=== PATIENT | male | born 1995 | race Caucasian/White ===

== ENCOUNTER 2016-08-20 17:07 | Inpatient (IN) | payer OTHER ==
[~2016-08-20] VITALS: Ht 175.3 cm; Wt 99.0 kg
[2016-08-20 19:14] LABS: MEAN CORPUSCULAR HGB CONC 36.4 g/dl (32.0-36.5); MEAN CORPUSCULAR VOLUME 85.2 fl (80.0-96.0); RED CELL DISTRIBUTION WIDTH 12.6 % (11.5-14.5); WHITE BLOOD COUNT 7.9 K/mm3 (4.0-10.0)
[2016-08-20 19:29] LABS: AMPHETAMINES LEVEL URINE NEGATIVE (NEGATIVE); BENZODIAZEPINES URINE NEGATIVE (NEGATIVE); COCAINE METABOLITE URINE NEGATIVE (NEGATIVE); CONTROL LINE INT CTR LINE PRESENT; METHADONE URINE NEGATIVE (NEGATIVE); OPIATES URINE NEGATIVE (NEGATIVE); TRICYCLIC ANTIDEPRESS URINE NEGATIVE (NEGATIVE)
[2016-08-20 19:41] LABS: ALBUMIN 4.5 GM/DL (3.2-5.2); ALKALINE PHOSPHATASE 87 U/L (45-117); ALT/SGPT 43 U/L (12-78); ANION GAP 7 MEQ/L (8-16); AST/SGOT 18 U/L (15-37); BILIRUBIN,DIRECT < 0.1 MG/DL (0.0-0.2); BILIRUBIN,TOTAL 0.4 MG/DL (0.2-1.0); BLOOD UREA NITROGEN 16 MG/DL (7-18); CARBON DIOXIDE LEVEL 28 MEQ/L (21-32); CHLORIDE LEVEL 108 MEQ/L (98-107); CREATININE FOR GFR 0.94 MG/DL (0.70-1.30); GLUCOSE, FASTING 97 MG/DL (70-105); POTASSIUM SERUM 4.2 MEQ/L (3.5-5.1); SODIUM LEVEL 143 MEQ/L (136-145); TOTAL PROTEIN 7.5 GM/DL (6.4-8.2)
--- NOTE | 2016-08-21 08:13 | EDDOCDS ---
Physician Documentation [facility] Name: Romie De Leon Age: 20 yrs Sex: Male : 1995 Arrival Date: 08/20/2016 Time: 17:07 Bed OBSERVATION Private MD: Other - Complete Info On Cds Disposition: 08/21/16 07:51 Hospitalization ordered by Shweta Diaz for Inpatient Admission. Preliminary diagnosis is Adjustment disorder, unspecified. - Bed requested for Admit. - Status is Inpatient Admission. pjf - Condition is Stable. - Problem is new. - Symptoms are unchanged. Historical: - Allergies: No known drug Allergies; - Home Meds: 1. Advil 200 mg Oral tab 2 tabs every 6 hours as needed (Last dose: 08/20/2016 05:20) - PMHx: none; - PSHx: none; - Social history: Smoking status: Patient uses tobacco products, current some day smoker. No barriers to communication noted, The patient speaks fluent Spanish. - : The pt / caregiver states he / she is not on anticoagulants. Home medication list is obtained from the patient. - Exposure Risk Screening:: None identified. Vital Signs: 08/20 17:09 BP 156 / 83; Pulse 84; Resp 18 S; Temp 98.3(O); Pulse Ox 97% ; Weight 99.79 kg / 220 gr2 lbs (R); Height 5 ft. 9 in. (175.26 cm) (R); Pain 0/10; 22:20 BP 144 / 84; Pulse 60; Resp 18 S; Temp 97.8(O); Pulse Ox 100% on R/A; Pain 0/10; jp4 08/21 06:04 BP 154 / 72 LA Sitting; Pulse 82; Resp 16; Temp 97.6(T); Pulse Ox 97% on R/A; Pain 0/10;rw1 08:05 BP 143 / 69; Pulse 60; Resp 16; Temp 96.9(O); Pulse Ox 97% on R/A; Pain 0/10; kr3 08/20 17:09 Body Mass Index 32.49 (99.79 kg, 175.26 cm) gr2 MDM: 08/20 18:29 REGULAR DIET PLASTIC STONER+DIET ordered. EDMS 18:55 Consult PFS/PSA/Drill Runner Helper ordered. ml6 18:55 Consult PFS/PSA/Drill Runner Helper: Patient's case requires discussion with on-call ml6 Psychiatrist ordered. 18:55 PSA/PFS to call Nursing Pill Machine Operator, to enter patient data on [place] Safe Act if patient ml6 involuntarily admitted or transferred for SI or HI ordered. 18:55 Confirm accurate psychiatric medication list and times of last dosage ordered. ml6 18:55 Detain Pt Until Medically/PFS Cleared ordered. ml6 18:56 Acetaminophen Level Ordered. EDMS 18:56 Basic Metabolic Profile Ordered. EDMS 18:56 Complete Blood Count Ordered. EDMS 18:56 Drug Eval Toxicology ED Only Ordered. EDMS 18:56 Ethyl Alcohol (ethanol) Ordered. EDMS 18:57 Liver Profile Ordered. EDMS 18:57 Salicylate Level Ordered. EDMS 18:57 Thyroid Stimulating Hormone Ordered. EDMS 20:35 Acetaminophen Level Reviewed. ml 20:35 Basic Metabolic Profile Reviewed. ml 20:35 Salicylate Level Reviewed. ml 20:35 Complete Blood Count Reviewed. ml 20:35 Drug Eval Toxicology ED Only Reviewed. ml 20:35 Ethyl Alcohol (ethanol) Reviewed. ml 20:35 Liver Profile Reviewed. ml 20:35 Thyroid Stimulating Hormone Reviewed. ml 21:04 Financial registration complete. [id number] 22:02 [facility] Payment Agreement was scanned into [employer] and attached to record. [id number] 04 02:03 Consult PFS/PSA/Drill Runner Helper complete. rb 02:03 Consult PFS/PSA/Drill Runner Helper: Patient's case requires discussion with on-call rb Psychiatrist complete. 02:03 PSA/PFS to call Nursing Pill Machine Operator, to enter patient data [place] Safe [place] if patient rb involuntarily admitted or transferred for SI or HI complete. 04:20 REGULAR DIET PLASTIC STONER+DIET ordered. EDMS 05:45 Awaiting: The patient is awaiting psychiatric admission or transfer. All labs and pc investigations have been reviewed. The vital signs have been reviewed. The patient remains medically cleared for disposition. 07:20 Admit to [facility]: ordered. EDMS 07:21 [facility] Legal paperwork was scanned into [employer] and attached to record. rb Signatures: Dispatcher [employer] EDMS Sánchez Murcia MD MD pc Delaney-Rowland, Sarah, MD MD sd1 Chilango Elizabeth MD MD ml Sleeman, Kacey, RN RN kcs Vaishali De Leon, PSA PSA rb Mahin Langford, Security Aide Sergei Peoples RN RN ml6 Roseanne Ochoa, Reg Reg [email or web address] The chart was reviewed and I authenticate all verbal orders and agree with the evaluation and treatment provided.Attachments: 08/20 22:02 [facility] Payment Agreement [email or web address]
--- NOTE | 2016-08-21 08:14 | EDDOCDS ---
Nurse's Notes [facility] Name: Romie De Leon Age: 20 yrs Sex: Male : 1995 Arrival Date: 08/20/2016 Time: 17:07 Bed OBSERVATION Private MD: Other - Complete Info On Cds Diagnosis: Adjustment disorder, unspecified Presentation: 08/20 17:33 Presenting complaint: Patient states: he was refereed from [facility] for MHE. Patient denies kcs SI but admits to LA. Mental Health Triage Level: Level 2: The patient displays active homicidal ideations. Adult Sepsis Screening: The patient does not have new or worsening altered mentation. Patient's respiratory rate is less than 22. Systolic blood pressure is greater than 100. Patient has a qSOFA score of 0- Negative Sepsis Screen. Mental Health Triage Level: Level 2: The patient displays active homicidal ideations. Suicide/Homicide risk assessment- The patient admits to and/or has been reported to be having homicidal ideations. The patient reports that he/she has not been admitted to an inpatient mental health facility in the last 30 days. The patient reports that he/she does not have a recent or current history of substance abuse. The patient reports that he/she has no prior history of suicide attempt and/or organized plan. The patient reports that he/she has not experienced a significant life altering event in the last 30 days. The patient reports that he/she has adequate social support. The patient reports he/she has no significant chronic medical condition(s). 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 Transition of care: patient was not received from another setting of care. 17:33 Acuity: ALEX Level 3 kcs 17:33 Method Of Arrival: Walkin/Carried/Asstd kcs Triage Assessment: 17:36 General: Appears comfortable, well developed, well nourished, well groomed, Behavior is kcs cooperative, pleasant. Pain: Denies pain. HIV screening NA for this visit active duty . Neurological: Level of Consciousness is awake, alert. Respiratory: Airway is patent Respiratory effort is even, unlabored, Respiratory pattern is regular, symmetrical. Derm: Skin is intact, is healthy with good turgor, Skin is dry, Skin is normal. Historical: - Allergies: No known drug Allergies; - Home Meds: 1. Advil 200 mg Oral tab 2 tabs every 6 hours as needed (Last dose: 08/20/2016 05:20) - PMHx: none; - PSHx: none; - Social history: Smoking status: Patient uses tobacco products, current some day smoker. No barriers to communication noted, The patient speaks fluent Luxembourgish. - : The pt / caregiver states he / she is not on anticoagulants. Home medication list is obtained from the patient. - Exposure Risk Screening:: None identified. Screenin:01 Screening information is obtained from the patient. Fall risk: No risks identified. ml6 Assistance ADL's: requires no assistance with activities of daily living. Abuse/DV Screen: The patient / caregiver reports he/she is: not in a situation that causes fear, pain or injury. Nutritional screening: No deficits noted. Advance Directives: Currently, there is no health care proxy. home support is adequate. Assessment: 17:39 General: Patient moved to 2nd triage area with his escort. kcs 18:58 General: Appears in no apparent distress, Behavior is flat. General: patient states ml6 that he was speaking with [employer]. Patient states that he had a "break down" in front of [facility], stated that he told them that he was having thoughts of harming the people that were making fun of him. Pain: Denies pain. Neurological: No deficits noted. Cardiovascular: No deficits noted. Capillary refill < 3 seconds is brisk in bilateral fingers toes. Respiratory: No deficits noted. Airway is patent Respiratory effort is even, unlabored, Respiratory pattern is regular, symmetrical. 19:18 General: Appears in no apparent distress, Behavior is flat, Assumed care of pt at this af2 time. Pt being changed by Gabriel, FUSING LINE INSPECTOR at this time. Offers no complaints, escort at bedside with pt. . Neurological: Level of Consciousness is awake, alert, obeys commands, Oriented to person, place, time. Respiratory: Airway is patent Respiratory effort is even, unlabored. Derm: Skin is normal. 19:21 General: ROSELINE staff observing pt at this time.. af2 20:06 General: Appears in no apparent distress, comfortable, Behavior is appropriate for age, jmb cooperative, Patient laying on stretcher with commanding officer at bedside. Patient watching television and voices no complaints at this time.. Neurological: Level of Consciousness is awake, alert, obeys commands, Oriented to person, place, time. Respiratory: Airway is patent Respiratory effort is even, unlabored, Respiratory pattern is regular, symmetrical. 20:48 General: Appears in no apparent distress, Behavior is appropriate for age, cooperative, jmb Patient laying on stretcher, appears comfortable. Patient watching television. NO voiced complaints at this time. . Neurological: Level of Consciousness is awake, alert, obeys commands, Oriented to person, place, time. Respiratory: Airway is patent Respiratory effort is even, unlabored, Respiratory pattern is regular, symmetrical. 21:43 General: Appears in no apparent distress, comfortable, Behavior is appropriate for age, jmb cooperative, Patient ambulating in room with commanding officer at bedside. Patient made phone call. NO complaints voiced at this time.. Pain: Denies pain. Neurological: Level of Consciousness is awake, alert, obeys commands, Oriented to person, place, time, Loan Review Officer are equal bilaterally Moves all extremities. Speech is normal, Facial symmetry appears normal, Facial symmetry: tongue is midline. Cardiovascular: Capillary refill < 3 seconds Heart tones S1 S2 present Pulses are all present. Rhythm is regular Chest pain is denied. Respiratory: Airway is patent Respiratory effort is even, unlabored, Respiratory pattern is regular, symmetrical, Breath sounds are clear bilaterally. GI: Abdomen is non- distended Bowel sounds present X 4 quads. Abd is soft and non tender X 4 quads. Derm: Skin is pink, warm & dry. Musculoskeletal: Range of motion intact in all extremities. 22:17 General: Appears in no apparent distress, comfortable, Behavior is appropriate for age, jmb cooperative, Patient laying on stretcher with commanding officer at bedside. NO voiced complaints at this time. . Neurological: Level of Consciousness is awake, alert, obeys commands, Oriented to person, place, time. Respiratory: Airway is patent Respiratory effort is even, unlabored, Respiratory pattern is regular, symmetrical. 22:48 General: Appears in no apparent distress, comfortable, Behavior is appropriate for age, jmb cooperative, Patient laying on stretcher watching television. Patient denies discomfort at this time. . Neurological: Level of Consciousness is awake, alert, obeys commands, Oriented to person, place, time. Respiratory: Airway is patent Respiratory effort is even, unlabored, Respiratory pattern is regular, symmetrical. 23:30 General: Appears in no apparent distress, comfortable, Behavior is appropriate for age, jmb cooperative. Neurological: Level of Consciousness is awake, alert, obeys commands, Oriented to person, place, time. Respiratory: Airway is patent Respiratory effort is even, unlabored, Respiratory pattern is regular, symmetrical. 08/21 00:30 General: Appears in no apparent distress, comfortable, Behavior is appropriate for age, jmb cooperative, Patient appears comfortable. Voices no complaints at this time. . Neurological: Level of Consciousness is awake, alert, obeys commands, Oriented to person, place, time. Respiratory: Airway is patent Respiratory effort is even, unlabored, Respiratory pattern is regular, symmetrical. 01:40 General: Appears in no apparent distress, comfortable, Behavior is appropriate for age, jmb cooperative, Patient appears asleep, easy to arouse. NO voiced complaints at this time. . Neurological: Level of Consciousness is awake, alert, obeys commands, Oriented to person, place, time. Respiratory: Airway is patent Respiratory effort is even, unlabored, Respiratory pattern is regular, symmetrical. 02:46 Adult Sepsis Screening: The patient does not have new or worsening altered mentation. cf2 Patient's respiratory rate is less than 22. Systolic blood pressure is greater than 100. Patient has a qSOFA score of 0- Negative Sepsis Screen. General: Patient calm and cooperative. Offers no complaints at present time. Will continue to monitor . 03:08 Reassessment: Patient appears in no apparent distress at this time. resting quietly on rw1 stretcher, safety maintained will monitor.. 04:15 Reassessment: Patient calm and cooperative will continue to monitor . cf2 05:04 General: Appears in no apparent distress, comfortable, Behavior is quiet, resting on rw1 stretcher with eyes closed, safety maintained. Respiratory: Airway is patent Respiratory effort is even, unlabored. Derm: Skin is pink, warm & dry. normal. 06:04 Reassessment: Patient appears in no apparent distress at this time. Patient denies pain rw1 at this time. resting quietly on stretcher, safety maintained will monitor.. 06:29 Reassessment: Patient appears in no apparent distress at this time. Patient denies pain cf2 at this time. General: Patient calm and cooperative. Will continue to monitor . 08:10 General: Appears in no apparent distress, comfortable, Behavior is cooperative, mk4 transferred to [facility]. Mental Health Eval: 02:05 Mental health consult is initiated at 01:00. 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 [facility] Behavioral Health: The patient is not an established patient of [facility] Behavioral Health. Referral Information: Evaluation referral is generated by ELIZABETH on [place] [place]. The patient was referred for evaluation because Pt presented to ED via [facility] after making +SI and +HI statements. Pt stated "Super stressed out, had a mental breakdown". "everything just piled up". Pt reported depressed since return from deployment ([employer]eless-6mo) last October," thought depression would go away". "Depression got worse over , I am a stress eater, turned to food, gained weight". "I was put in over weight program, and get called names". "Super stressed". "Have been inside". "Would be easier if I wasn't here anymore". Pt reported made a +HI comment to someone regarding people who call him names. . Subjective: The patients chief complaint is +SI, hopeless, Made +HI comment.. Delusions are denied. Patient's mood is dysphoric, hopeless, Hallucinations are denied. Mental Health history: depression, Mental Health Admissions: None. Current Outpatient Mental Health Services: None. Current living environment is The patient currently lives with his / her significant other, in an apartment.. Patient presents to Emergency Department with the following symptoms within the past 2 weeks: anxiety, increased appetite, depressed mood, feelings of helplessness/hopelessness, labile mood, suicidal ideation with no plan, weight gain. Substance abuse: Pt denies. Mental status exam: Patients appearance is appropriate, Patient's behavior is cooperative, Speech is slow. Affect is flat. Mood is anxious. dysphoric. Hallucinations are denied. Memory is good. Energy level is lethargic. Content of thought is depressive. , Thought process is characterized by flight of ideas. Cognitive level is oriented to person, place, time and situation Patient's insight is fair. Judgement is fair. Rapport with interviewer is good. Suicidal Ideation is present with no specific plan. Homicidal ideation is denied. Disposition: Medically cleared for disposition by Chilango Elizabeth MD Psychiatric Consult is performed by phone with Dr Shweta Diaz. [facility] Admission Criteria: The patient is experiencing suicidal ideation. The patient displays homicidal ideation. The patient displays symptoms of severe psychiatric disorder resulting in disordered behavior and significant interference with his / her ability to maintain self care. Severe Anxiety. The patient requires continuous observation and/or control to protect self, others or property. [place] Safe [place]: [place] Safe Act is applicable to this patient. The patient poses a risk to self or other and the Nursing Enologist has been notified. He/She will enter the patient's data. 07:02 Legal Status: Patient's legal status will be Emergency admission: 39. Insurance rb Pre-Certification: Not Required. 07:31 DSM-V Differential Diagnosis: Adjustment Disorder (F43.2) with depressed mood (F43.21). rb Awaiting: transfer to [facility]. Vital Signs: 08/20 17:09 BP 156 / 83; Pulse 84; Resp 18 S; Temp 98.3(O); Pulse Ox 97% ; Weight 99.79 kg (R); gr2 Height 5 ft. 9 in. (175.26 cm) (R); Pain 0/10; 22:20 BP 144 / 84; Pulse 60; Resp 18 S; Temp 97.8(O); Pulse Ox 100% on R/A; Pain 0/10; jp4 / 06:04 BP 154 / 72 LA Sitting; Pulse 82; Resp 16; Temp 97.6(T); Pulse Ox 97% on R/A; Pain 0/10;rw1 08:05 BP 143 / 69; Pulse 60; Resp 16; Temp 96.9(O); Pulse Ox 97% on R/A; Pain 0/10; kr3 08/20 17:09 Body Mass Index 32.49 (99.79 kg, 175.26 cm) gr2 Vitals: 08/20 17:09 Log In Time: August 20, 2016 at 17:09. RN notified that patient meets Red Flag gr2 criteria. ED Course: 17:08 Patient visited by Adele Resendiz. gr2 17:08 Patient moved to Waiting gr2 17:09 Other - Complete Info On Cds is Private Physician. gr2 17:10 Patient visited by Adele Resendiz. gr2 17:10 Patient moved to Pre RCE gr2 17:35 Triage Initiated kcs 17:37 Patient moved to Psy Chair1 kcs 18:46 Patient moved to I8 / [facility] 18:50 Patient visited by Leanne Nguyen PCA. sudha 19:00 Chilango Elizabeth MD is Attending Physician. ml 19:00 Patient visited by Chilango Elizabeth MD. ml 19:01 The patient / caregiver is instructed regarding the plan of care and ED course. ml6 19:01 No IV's were initiated during this patient's visit. No procedures done that require ml6 assistance. 19:08 Acetaminophen Level Sent. sudha 19:08 Basic Metabolic Profile Sent. sudha 19:08 Complete Blood Count Sent. sudha 19:08 Drug Eval Toxicology ED Only Sent. sudha 19:08 Ethyl Alcohol (ethanol) Sent. sudha 19:08 Liver Profile Sent. sudha 19:08 Salicylate Level Sent. sudha 19:08 Thyroid Stimulating Hormone Sent. sudha 19:20 Patient visited by Lexis Weldon RN. af2 19:21 Patient visited by Lexis Weldon RN. af2 20:07 Patient visited by Junior Henderson RN. jmb 20:48 Patient visited by Martha Marshall PCA. rs6 20:49 Patient visited by Junior Henderson RN. jmb 21:44 Patient visited by Junior Henderson RN. jmb 22:02 [facility] Payment Agreement was scanned into [employer] and attached to record. ks16 22:18 Patient visited by Junior Henderson RN. jmb 22:20 Patient visited by Gabriel Moyer. jp4 22:49 Patient visited by Junior Henderson RN. jmb 23:07 Nayeli Jeffers,CLARIBEL is Primary Nurse. cf2 23:07 Patient visited by Nayeli Jeffers,CLARIBEL. cf2 23:17 Patient moved to OBSERVATION 08/21 00:49 role handed off by Robbin Giles PSA kb5 01:23 Patient visited by Nayeli Jeffers,CLARIBEL. cf2 01:42 Patient visited by Junior Henderson RN. jmb 02:46 Patient visited by Nayeli Jeffers,CLARIBEL. cf2 03:00 Patient visited by Travis Monique PCA. kb5 03:00 Psych Safety Check: Location: Psych Room. Visual Assessment: Cooperative. kb5 03:15 Patient visited by Travis Monique FUSING LINE INSPECTOR. kb5 03:15 Psych Safety Check: Location: Psych Room. Visual Assessment: Cooperative. kb5 03:30 Psych Safety Check: Location: Psych Room. Visual Assessment: Cooperative. kb5 03:31 Patient visited by Emeterio Alarcon LPN. rw1 03:45 Patient visited by Emeterio Alarcon LPN. rw1 03:45 Psych Safety Check: Location: Psych Room. Visual Assessment: Cooperative. kb5 04:00 Psych Safety Check: Location: Psych Room. Visual Assessment: Cooperative. kb5 04:04 Patient visited by Emeterio Alarcon LPN. rw1 04:15 Psych Safety Check: Location: Psych Room. Visual Assessment: Cooperative. kb5 04:18 Patient visited by Travis Monique FUSING LINE INSPECTOR. kb5 04:30 Patient visited by Terra Moniqueopher FUSING LINE INSPECTOR. kb5 04:30 Psych Safety Check: Location: Psych Room. Visual Assessment: Cooperative. kb5 04:45 Patient visited by Terra Moniqueopher FUSING LINE INSPECTOR. kb5 04:45 Psych Safety Check: Location: Psych Room. Visual Assessment: Cooperative. kb5 05:00 Psych Safety Check: Location: Psych Room. Visual Assessment: Cooperative. kb5 05:15 Psych Safety Check: Location: Psych Room. Visual Assessment: Cooperative. kb5 05:22 Patient visited by Terra Moniqueopher FUSING LINE INSPECTOR. kb5 05:30 Psych Safety Check: Location: Psych Room. Visual Assessment: Cooperative. kb5 05:40 Patient visited by Terra Moniqueopher, FUSING LINE INSPECTOR. kb5 05:45 Patient visited by Terra Moniqueopher FUSING LINE INSPECTOR. kb5 05:45 Attending Physician role handed off by Chilango Elizabeth MD pc 05:45 Sánchez Murcia MD is Attending Physician. pc 05:45 Psych Safety Check: Location: Psych Room. Visual Assessment: Cooperative. kb5 06:00 Patient visited by Abner Moniqueer FUSING LINE INSPECTOR. kb5 06:00 Psych Safety Check: Location: Psych Room. Visual Assessment: Cooperative. kb5 06:15 Patient visited by Abner Moniqueer FUSING LINE INSPECTOR. kb5 06:15 Psych Safety Check: Location: Psych Room. Visual Assessment: Cooperative. kb5 06:29 Patient visited by Nayeli Jeffers RN. cf2 06:30 Patient visited by Travis Monique PCA. kb5 06:30 Psych Safety Check: Location: Psych Room. Visual Assessment: Cooperative. kb5 06:45 Psych Safety Check: Location: Psych Room. Visual Assessment: Cooperative. kb5 06:57 Patient visited by Traivs Monique PCA. kb5 07:00 Svetlana Martin,CLARIBEL is Primary Nurse. ck1 07:00 Psych Safety Check: Location: Psych Room. Visual Assessment: Cooperative. pjf 07:05 Attending Physician role handed off by Sánchez Murcia MD sd1 07:05 Nika Jerez MD is Attending Physician. sd1 07:15 Psych Safety Check: Location: Psych Room. Visual Assessment: Cooperative. pjf 07:21 [facility] Legal paperwork was scanned into [employer] and attached to record. rb 07:30 Psych Safety Check: Location: Psych Room. Visual Assessment: Cooperative. pjf 07:45 Psych Safety Check: Location: Psych Room. Visual Assessment: Cooperative. pjf 07:51 Shweta Diaz is Hospitalizing Provider. sd1 07:53 Patient visited by Mahin Langford Security Aide. pjf 08:09 Patient visited by Mahin Langford Security Aide. pjf Attachments: 08/21 07:21 [facility] Legal paperwork rb Order Results: Lab Order: Acetaminophen Level; SPEC'M 08/20/16 19:06 Test: ACETAMINOPHEN LEVEL; Value: < 2.0; Range: 10.0-30.0; Abnormal: Below low normal; Units: UG/ML; Status: F Lab Order: Basic Metabolic Profile; SPEC'M 08/20/16 19:06 Test: GLUCOSE, FASTING; Value: 97; Range: 70-105; Units: MG/DL; Status: F Test: BLOOD UREA NITROGEN; Value: 16; Range: 7-18; Units: MG/DL; Status: F Test: CREATININE FOR GFR; Value: 0.94; Range: 0.70-1.30; Units: MG/DL; Status: F Test: SODIUM LEVEL; Value: 143; Range: 136-145; Units: MEQ/L; Status: F Test: POTASSIUM SERUM; Value: 4.2; Range: 3.5-5.1; Units: MEQ/L; Status: F Test: CHLORIDE LEVEL; Value: 108; Range: 98-107; Abnormal: Above high normal; Units: MEQ/L; Status: F Test: CARBON DIOXIDE LEVEL; Value: 28; Range: 21-32; Units: MEQ/L; Status: F Test: ANION GAP; Value: 7; Range: 8-16; Abnormal: Below low normal; Units: MEQ/L; Status: F Test: CALCIUM LEVEL; Value: 9.0; Range: 8.5-10.1; Units: MG/DL; Status: F Lab Order: Complete Blood Count; SPEC'M 08/20/16 19:06 Test: WHITE BLOOD COUNT; Value: 7.9; Range: 4.0-10.0; Units: K/mm3; Status: F Test: RED BLOOD COUNT; Value: 5.29; Range: 4.30-6.10; Units: M/mm3; Status: F Test: HEMOGLOBIN; Value: 16.4; Range: 14.0-18.0; Units: g/dl; Status: F Test: HEMATOCRIT; Value: 45.1; Range: 42.0-52.0; Units: %; Status: F Test: MEAN CORPUSCULAR VOLUME; Value: 85.2; Range: 80.0-96.0; Units: fl; Status: F Test: MEAN CORPUSCULAR HEMOGLOBIN; Value: 31.0; Range: 27.0-33.0; Units: pg; Status: F Test: MEAN CORPUSCULAR HGB CONC; Value: 36.4; Range: 32.0-36.5; Units: g/dl; Status: F Test: RED CELL DISTRIBUTION WIDTH; Value: 12.6; Range: 11.5-14.5; Units: %; Status: F Test: PLATELET COUNT, AUTOMATED; Value: 208; Range: 150-450; Units: k/mm3; Status: F Lab Order: Drug Eval Toxicology ED Only; SPEC'M 08/20/16 19:06 Test: AMPHETAMINES LEVEL URINE; Value: NEGATIVE; Range: NEGATIVE; Status: F Test: BARBITURATES URINE; Value: NEGATIVE; Range: NEGATIVE; Status: F Test: BENZODIAZEPINES URINE; Value: NEGATIVE; Range: NEGATIVE; Status: F Test: CANNABINOIDS URINE; Value: NEGATIVE; Range: NEGATIVE; Status: F Test: COCAINE METABOLITE URINE; Value: NEGATIVE; Range: NEGATIVE; Status: F Test: METHADONE URINE; Value: NEGATIVE; Range: NEGATIVE; Status: F Test: OPIATES URINE; Value: NEGATIVE; Range: NEGATIVE; Status: F Test: TRICYCLIC ANTIDEPRESS URINE; Value: NEGATIVE; Range: NEGATIVE; Status: F Test Note: ; ALL PRESUMPTIVE POSITIVE FINDINGS ARE UNCONFIRMED NORMAL VALUES THRESHOLD IN NG/ML AMPHETAMINES 1000 METHAMPHETAMINES 1000 BARBITURATES 300 BENZODIAZEPINES 300 CANNABINOIDS (THC) 50 COCAINE METABOLITE 300 METHADONE 300 OPIATES 300 PHENCYCLIDINE 25 TRICYCLIC ANTIDEPRESSANTS 1000 RESULTS ARE FOR MEDICAL PURPOSES ONLY. ALL URINE SPECIMENS WILL BE SAVED FOR 3 DAYS. IF CONFIRMATION OF A PRESUMPTIVE POSTIVE SCREEN RESULT IS DESIRED, CALL CHEMISTRY ([phone]) AND REQUEST URINE TO BE SENT TO REFERENCE LAB. FOR A LIST OF CLOSELY RELATED COMPOUNDS PLEASE CALL THE LAB. Lab Order: Ethyl Alcohol (ethanol); SPEC'M 08/20/16 19:06 Test: ETHYL ALCOHOL (ETHANOL); Value: < 0.003; Range: 0.000-0.010; Units: %; Status: F Lab Order: Liver Profile; SPEC'M 08/20/16 19:06 Test: AST/SGOT; Value: 18; Range: 15-37; Units: U/L; Status: F Test: ALT/SGPT; Value: 43; Range: 12-78; Units: U/L; Status: F Test: ALKALINE PHOSPHATASE; Value: 87; Range: 45-117; Units: U/L; Status: F Test: BILIRUBIN,TOTAL; Value: 0.4; Range: 0.2-1.0; Units: MG/DL; Status: F Test: BILIRUBIN,DIRECT; Value: < 0.1; Range: 0.0-0.2; Units: MG/DL; Status: F Test: TOTAL PROTEIN; Value: 7.5; Range: 6.4-8.2; Units: GM/DL; Status: F Test: ALBUMIN; Value: 4.5; Range: 3.2-5.2; Units: GM/DL; Status: F Test: ALBUMIN/GLOBULIN RATIO; Value: 1.50; Range: 1.00-1.93; Status: F Lab Order: Salicylate Level; SPEC'M 08/20/16 19:06 Test: SALICYLATE LEVEL; Value: < 1.7; Range: 5.0-30.0; Abnormal: Below low normal; Units: MG/DL; Status: F Lab Order: Thyroid Stimulating Hormone; SPEC'M 08/20/16 19:06 Test: THYROID STIMULATING HORMONE; Value: 1.310; Range: 0.463-3.98; Units: uIU/ML; Status: F Outcome: 07:51 Decision to Hospitalize by Provider. sd1 08:09 Discharge Assessment: Patient awake, alert and oriented x 3. No cognitive and/or mk4 functional deficits noted. Patient verbalized understanding of disposition instructions. Patient awake and alert. Discharge Assessment: patient administered narcotics - no. Admitted to Psych accompanied by tech, via wheelchair. The following High Risk Discharge criteria are identified: None. Condition: good Condition: stable. No special radiology studies were completed. Property left with pt per emilee SANFORD. 08:13 Patient left the ED. pjf Signatures: Sánchez Murcia MD MD pc Delaney-Rowland, Sarah, MD MD sd1 Chilango Elizabeth MD MD ml Hanna Judd, RN RN kcs Kayleigh Sterling RN RN kpj De Leon, Vaishali, PSA PSA rb Ferendzo, Mahin, Security A[facility] Svetlana MartinRN RN ck1 Monique Neff,RN RN kr3 Emeterio Alarcon LPN LPN rw1 Travis Monique, FUSING LINE INSPECTOR FUSING LINE INSPECTOR kb5 Sergei Hurley, RN RN ml6 Leanne Nguyen, FUSING LINE INSPECTOR FUSING LINE INSPECTOR sudha Adele Resendiz gr2 Junior Henderson,RN RN Lanie Owen RN RN mk4 Gabriel Moyer jp4 Martha Marshall, FUSING LINE INSPECTOR FUSING LINE INSPECTOR rs6 Lexis Weldon,RN RN af2 Roseanne Ochoa, Reg Reg ks16 Nayeli Jeffers,RN RN cf2 MTDD
[2016-08-21 08:32] VITALS: BP 148/86
[2016-08-21] MEDS ORDERED: MAALOX 30 ML SUSP *UDC PO PRN (11:45)
[2016-08-21] MEDS ORDERED: IBUPROFEN 400 MG TAB PO PRN (11:45)
[2016-08-21] MEDS ORDERED: MOM 30ML SUSPENSION UDC PO PRN (11:45)
--- NOTE | 2016-08-21 13:24 | HPEPDOC ---
Medical History and Physical Date of Admission Aug 21, 2016 at 08:20 History and Physical PCP: [facility] ATTENDING: Dr. Ed Martinez HPI: 20yoM admitted to [facility] for Adjustment disorder, being medically examined today. Reports mild sinus congestion, clear drainage. No ST, sinus pain, cough. Denies any fevers, chills, weakness, fatigue, LUBIN, CP, SOB, cough, palpitations, abdominal pain, N/V/D or changes in bowel or bladder habits. 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 ETOH: 1-2 drink per month Illicit Drugs: Denies IV Drug Use: Denies Tattoos done unprofessionally: Denies FAMHX: Mother: Alive, estranged Father: Alive, well Siblings: 1 brother, 1 half sister Alive, well Children: Alive, well Unexpected deaths due to medical reasons: None. ROS: As noted in HPI, otherwise 11pt ROS of systems reviewed and unremarkable PE: GEN: 20yoM, appears stated age. Well-nourished, well developed. No acute distress. Alert and oriented x 3. Pleasant, interactive. HEENT: Normocephalic, atraumatic. Pupils are equal, round, and reactive to light. Extraocular movements are intact. No nystagmus appreciated. Sclera are nonicteric. Conjunctiva without injection. Nose midline. Nasal turbinates without bogginess. EACs both patent BL. TMs both visualized and otero with good cone of light, no bulging or erythema. No facial asymmetry. Moist mucous membranes. Dentition fair. Pharynx pink and moist, no cobblestoning. Neck supple , trachea midline. No lymphadenopathy or thyromegaly appreciated. CHEST: Regular rate and rhythm, +S1, +S2 LUNGS: Clear to auscultation bilaterally. No wheezes, rales, or rhonchi. Breathing appears symmetric and easy. Patient is speaking in full sentences. No accessory muscle use. ABD: Round, soft, non-tender, non-distended. +Bowel sounds throughout. No rebound or guarding. No costovertebral angle tenderness. EXT: Pulses 2+ bilaterally dorsalis pedis and radial. No lower extremity edema appreciated. SKIN: [place], dry, warm. Capillary refill <2sec. No rashes. NEURO: Alert and oriented x 3. Cranial nerves III-XII are intact. No focal deficits appreciated. EKG: pending. A&P: 20yoM admitted to [facility] for Adjustment disorder 1. Psych. Plan per Psychiatry. Obtain baseline EKG to assure the safety of psychiatric medications as they can prolong the QT interval. 2. Nasal congestion/PND. Saline nasal spray as needed. 3. Follow up with PCP on discharge. [facility]. 4. Staff member present throughout exam, Reji carlson. Vital Signs Vital Signs Label Value Date Time Patient Temperature 97.6 degrees F 08/21/16 0832 Temperature Source Tympanic 08/21/16 0832 Pulse 72 08/21/16 0832 Respiratory Rate 16 bpm 08/21/16 0832 Blood Pressure Assessment 148/86 (106) 08/21/16 0832 Bedside Pulse Oximetry 97 % 08/21/16 0832 Item Value Date Time Oxygen Delivery Method Room Air 08/21/16 0832 Laboratory Data Labs 24H Laboratory Tests 2 08/20/16 19:06: Acetaminophen Level < 2.0L, Aspartate Amino Transf (AST/SGOT) 18, Alanine Aminotransferase (ALT/SGPT) 43, Alkaline Phosphatase 87, Total Bilirubin 0.4, Direct Bilirubin < 0.1, Albumin 4.5, Albumin/Globulin Ratio 1.50, Anion Gap 7L, Calcium Level 9.0, Ethyl Alcohol Level < 0.003, Salicylates Level < 1.7L, Thyroid Stimulating Hormone (TSH) 1.310, Total Protein 7.5, Urine Amphetamine Level NEGATIVE, Urine Benzodiazepines Screen NEGATIVE, Urine Cannabinoids NEGATIVE, Urine Cocaine Metabolite NEGATIVE, Urine Opiates Screen NEGATIVE, Urine Barbiturates, Qualitative NEGATIVE, Urine Methadone Screen NEGATIVE, Urine Tricyclic Antidepressants NEGATIVE CBC/BMP Laboratory Tests 08/20/16 19:06 Red Blood Count 5.29, Mean Corpuscular Volume 85.2, Mean Corpuscular Hemoglobin 31.0, Mean Corpuscular Hemoglobin Concent 36.4, Red Cell Distribution Width 12.6 Home Medications Miscellaneous Medications ([None]) NONE Allergies Coded Allergies: No Known Allergies (Unverified , 08/21/16) Maame Mace Aug 21, 2016 13:24
[2016-08-21] MEDS ORDERED: SODIUM CHLORIDE NASAL 0.65% SPRAY BTL (OCEAN) PRN (13:30)
[2016-08-21] MEDS: VENLAFAXINE **XR** 37.5 MG CAPSULE PO SCH (14:51)
--- NOTE | 2016-08-21 15:00 | MHHPE ---
DATE OF ADMISSION: 08/21/2016 CURRENT MEDICATIONS: None. CHIEF COMPLAINT: Homicidal/suicidal ideation. 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 Since he came home from deployment from [place] back in October 2015, he has become more depressed over the course of time. He has complained of nightmares. He feels useless. He feels empty inside. He no longer enjoys life. Activities that used to give him pleasure, he now avoids. He no longer socializes with friends. He no longer skis, snow boards, or ice skates. His appetite has increased. 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 His concentration has suffered. He sleeps poorly at night. He tosses and turns a lot. The patient states that he has been punished for going on sick-call for his weight. The patient was afraid to go to behavioral health because of negative consequences in the platoon. He reports that his buddies make fun of him and his weight which makes him more depressed. The patient states he was afraid he might crack and hurt himself or his peers. The patient does have a history of anxiety and panic attacks. He is avoidant. He avoids busy places like shopping malls. He has had classic panic attacks where he hyperventilates. The patient is from [place] town and finds even [place] overwhelming. Caffeine consumption is rare. He denies obsessive-compulsive disorder (OCD) symptoms. He does feel claustrophobic in small spaces. Public speaking is hard for him. He gets flustered easily. He did have a speech impediment in the past and saw a speech therapist. PAST PSYCHIATRIC HISTORY: The patient has never seen a psychiatrist. When his parents got when he was 7, he did see a counselor briefly after the divorce. PAST MEDICAL HISTORY: The patient denies. ALLERGIES TO MEDICATIONS: None noted. LEGAL ISSUES: Negative. CHEMICAL DEPENDENCY: None. SOCIAL HISTORY: The patient was born and raised in a small town in [place]. He is a high school graduate. Parents when he was 7 or 8. He has not seen his mother in eight years. Relationship with father is good. Relationship with his two siblings is good. FAMILY PSYCHIATRIC HISTORY: The patient denies. MENTAL STATUS EXAMINATION: The patient is alert, oriented, and cooperative. He reports anxiety symptoms with phobic behavior with a history of panic symptoms. Affect appears sad. Mood is mildly to moderately depressed with recent homicidal/suicidal thoughts. He is non-psychotic, not hearing voices. No paranoid or thought disorder. Insight and judgment are fair. No signs of organic episodes. DIAGNOSES: 1. Major depression, single episode. 2. Panic anxiety disorder. 3. Rule out posttraumatic stress disorder (PTSD) from deployment. 4. Rule out social phobia. PROBLEM LIST: 1. Depression. 2. Risk for suicide. 3. Anxiety. PLAN: Start trial on Effexor XR 37.5 mg every morning. The patient learned about the risk of side effects and possible suicidal thoughts, etcetera, involve in milieu therapy, 9.39 confirmed.
[2016-08-21 18:00] VITALS: BP 133/69
[2016-08-21] MEDS: traZODone 50 MG TAB PO PRN (21:27)
[2016-08-22 06:31] VITALS: BP 133/72
[2016-08-22] MEDS: VENLAFAXINE **XR** 37.5 MG CAPSULE PO SCH (08:47)
--- NOTE | 2016-08-22 16:37 | IPN ---
DATE: 08/22/2016 VITAL SIGNS: Temperature 96.2, pulse 70, respirations 16, blood pressure 133/72. CURRENT MEDICATIONS: - Effexor XR 37.5 mg - trazodone 50 mg nightly PSYCHIATRIC HISTORY: The patient feels comfortable on the unit. He finds the groups helpful here. It is helping with his stress level. He is still worried about the future, however. His appetite is good. He is sleeping better at night with the trazodone. He slept like a "rock." This is quite rare for him. He typically has nightmares or tosses and turns all night. He feels comfortable increasing his dose of Effexor. He has had no side effects on it. No nausea or vomiting. MENTAL STATUS EXAMINATION: The patient is alert, oriented and cooperative. The patient still reports anxiety symptoms with a history of phobias. No panic attacks on the unit. Affect remains sad. He is mildly depressed. He is not currently homicidal or suicidal. No signs of paranoia. He is not hearing voices. Insight and judgment are fair. DIAGNOSES: Major depression, single episode. Panic and anxiety disorder. Rule out post-traumatic stress disorder (PTSD) from deployment. Rule out social phobia. PLAN: Increase Effexor XR 75 mg every morning. No change in trazodone.
--- NOTE | 2016-08-22 17:24 | ECGEPIP ---
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
[2016-08-22 18:00] VITALS: BP 152/64
[2016-08-22] MEDS: traZODone 50 MG TAB PO PRN (22:05)
[2016-08-23 06:00] VITALS: BP 155/59
[2016-08-23] MEDS: VENLAFAXINE **XR** 75MG CAPSULE PO SCH (09:10)
--- NOTE | 2016-08-23 09:14 | EDDOCDS ---
Physician Documentation [facility] Name: Romie De Leon Age: 20 yrs Sex: Male : 1995 Arrival Date: 08/20/2016 Time: 17:07 Bed OBSERVATION Private MD: Other - Complete Info On Cds Disposition: 08/21/16 07:51 Hospitalization ordered by Shweta Diaz for Inpatient Admission. Preliminary diagnosis is Adjustment disorder, unspecified. - Bed requested for Admit. - Status is Inpatient Admission. pjf - Condition is Stable. - Problem is new. - Symptoms are unchanged. Historical: - Allergies: No known drug Allergies; - Home Meds: 1. Advil 200 mg Oral tab 2 tabs every 6 hours as needed (Last dose: 08/20/2016 05:20) - PMHx: none; - PSHx: none; - Social history: Smoking status: Patient uses tobacco products, current some day smoker. No barriers to communication noted, The patient speaks fluent Italian. - : The pt / caregiver states he / she is not on anticoagulants. Home medication list is obtained from the patient. - Exposure Risk Screening:: None identified. Vital Signs: 08/20 17:09 BP 156 / 83; Pulse 84; Resp 18 S; Temp 98.3(O); Pulse Ox 97% ; Weight 99.79 kg / 220 gr2 lbs (R); Height 5 ft. 9 in. (175.26 cm) (R); Pain 0/10; 22:20 BP 144 / 84; Pulse 60; Resp 18 S; Temp 97.8(O); Pulse Ox 100% on R/A; Pain 0/10; jp4 08/21 06:04 BP 154 / 72 LA Sitting; Pulse 82; Resp 16; Temp 97.6(T); Pulse Ox 97% on R/A; Pain 0/10;rw1 08:05 BP 143 / 69; Pulse 60; Resp 16; Temp 96.9(O); Pulse Ox 97% on R/A; Pain 0/10; kr3 08/20 17:09 Body Mass Index 32.49 (99.79 kg, 175.26 cm) gr2 MDM: 08/20 18:29 REGULAR DIET PLASTIC STONER+DIET ordered. EDMS 18:55 Consult PFS/PSA/Wax Pot Tender ordered. ml6 18:55 Consult PFS/PSA/Wax Pot Tender: Patient's case requires discussion with on-call ml6 Psychiatrist ordered. 18:55 PSA/PFS to call Nursing Staff Editor, to enter patient data on [place] if patient ml6 involuntarily admitted or transferred for SI or HI ordered. 18:55 Confirm accurate psychiatric medication list and times of last dosage ordered. ml6 18:55 Detain Pt Until Medically/PFS Cleared ordered. ml6 18:56 Acetaminophen Level Ordered. EDMS 18:56 Basic Metabolic Profile Ordered. EDMS 18:56 Complete Blood Count Ordered. EDMS 18:56 Drug Eval Toxicology ED Only Ordered. EDMS 18:56 Ethyl Alcohol (ethanol) Ordered. EDMS 18:57 Liver Profile Ordered. EDMS 18:57 Salicylate Level Ordered. EDMS 18:57 Thyroid Stimulating Hormone Ordered. EDMS 20:35 Acetaminophen Level Reviewed. ml 20:35 Basic Metabolic Profile Reviewed. ml 20:35 Salicylate Level Reviewed. ml 20:35 Complete Blood Count Reviewed. ml 20:35 Drug Eval Toxicology ED Only Reviewed. ml 20:35 Ethyl Alcohol (ethanol) Reviewed. ml 20:35 Liver Profile Reviewed. ml 20:35 Thyroid Stimulating Hormone Reviewed. ml 21:04 Financial registration complete. [email or web address] 22:02 [facility] Payment Agreement was scanned into [employer] and attached to record. [email or web address] 04 02:03 Consult PFS/PSA/Wax Pot Tender complete. rb 02:03 Consult PFS/PSA/Wax Pot Tender: Patient's case requires discussion with on-call rb Psychiatrist complete. 02:03 PSA/PFS to call Nursing Staff Editor, to [place] if patient rb involuntarily admitted or transferred for SI or HI complete. 04:20 REGULAR DIET PLASTIC STONER+DIET ordered. EDMS 05:45 Awaiting: The patient is awaiting psychiatric admission or transfer. All labs and pc investigations have been reviewed. The vital signs have been reviewed. The patient remains medically cleared for disposition. 07:20 Admit to [facility]: ordered. EDMS 07:21 [facility] Legal paperwork was scanned into [employer] and attached to record. rb 15:07 T-Sheet-- Draft Copy was scanned into [employer] and attached to record. gb Signatures: Dispatcher [employer] EDMS Sánchez Murcia MD MD pc Delaney-Rowland, Sarah, MD MD sd1 Chilango Elizabeth MD MD ml Hanna Judd, RN RN kcs Vaishali De Leon, PSA PSA rb Destiny Waters, Reg Reg gb Mahin Langford, Sergei Byers RN RN ml6 Roseanne Ochoa, Reg Reg [email or web address] The chart was reviewed and I authenticate all verbal orders and agree with the evaluation and treatment provided.Attachments: 08/20 22:02 [facility] Payment Agreement [email or web address] 15:07 T-Sheet-- Draft Copy gb Chart Complete MTDD
--- NOTE | 2016-08-23 09:14 | EDDOCDS ---
Physician Documentation [facility] Name: Romie De Leon Age: 20 yrs Sex: Male : 1995 Arrival Date: 08/20/2016 Time: 17:07 Bed OBSERVATION Private MD: Other - Complete Info On Cds Disposition: 08/21/16 07:51 Hospitalization ordered by Shweta Diaz for Inpatient Admission. Preliminary diagnosis is Adjustment disorder, unspecified. - Bed requested for Admit. - Status is Inpatient Admission. pjf - Condition is Stable. - Problem is new. - Symptoms are unchanged. Historical: - Allergies: No known drug Allergies; - Home Meds: 1. Advil 200 mg Oral tab 2 tabs every 6 hours as needed (Last dose: 08/20/2016 05:20) - PMHx: none; - PSHx: none; - Social history: Smoking status: Patient uses tobacco products, current some day smoker. No barriers to communication noted, The patient speaks fluent Croatian. - : The pt / caregiver states he / she is not on anticoagulants. Home medication list is obtained from the patient. - Exposure Risk Screening:: None identified. Vital Signs: 08/20 17:09 BP 156 / 83; Pulse 84; Resp 18 S; Temp 98.3(O); Pulse Ox 97% ; Weight 99.79 kg / 220 gr2 lbs (R); Height 5 ft. 9 in. (175.26 cm) (R); Pain 0/10; 22:20 BP 144 / 84; Pulse 60; Resp 18 S; Temp 97.8(O); Pulse Ox 100% on R/A; Pain 0/10; jp4 08/21 06:04 BP 154 / 72 LA Sitting; Pulse 82; Resp 16; Temp 97.6(T); Pulse Ox 97% on R/A; Pain 0/10;rw1 08:05 BP 143 / 69; Pulse 60; Resp 16; Temp 96.9(O); Pulse Ox 97% on R/A; Pain 0/10; kr3 08/20 17:09 Body Mass Index 32.49 (99.79 kg, 175.26 cm) gr2 MDM: 08/20 18:29 REGULAR DIET PLASTIC STONER+DIET ordered. EDMS 18:55 Consult PFS/PSA/Division Superintendent ordered. ml6 18:55 Consult PFS/PSA/Division Superintendent: Patient's case requires discussion with on-call ml6 Psychiatrist ordered. 18:55 PSA/PFS to call Nursing Lumber Piler Operator, to [place] if patient ml6 involuntarily admitted or transferred for SI or HI ordered. 18:55 Confirm accurate psychiatric medication list and times of last dosage ordered. ml6 18:55 Detain Pt Until Medically/PFS Cleared ordered. ml6 18:56 Acetaminophen Level Ordered. EDMS 18:56 Basic Metabolic Profile Ordered. EDMS 18:56 Complete Blood Count Ordered. EDMS 18:56 Drug Eval Toxicology ED Only Ordered. EDMS 18:56 Ethyl Alcohol (ethanol) Ordered. EDMS 18:57 Liver Profile Ordered. EDMS 18:57 Salicylate Level Ordered. EDMS 18:57 Thyroid Stimulating Hormone Ordered. EDMS 20:35 Acetaminophen Level Reviewed. ml 20:35 Basic Metabolic Profile Reviewed. ml 20:35 Salicylate Level Reviewed. ml 20:35 Complete Blood Count Reviewed. ml 20:35 Drug Eval Toxicology ED Only Reviewed. ml 20:35 Ethyl Alcohol (ethanol) Reviewed. ml 20:35 Liver Profile Reviewed. ml 20:35 Thyroid Stimulating Hormone Reviewed. ml 21:04 Financial registration complete. [email or web address] 22:02 [facility] Payment Agreement was scanned into [employer] and attached to record. [email or web address] 04 02:03 Consult PFS/PSA/Division Superintendent complete. rb 02:03 Consult PFS/PSA/Division Superintendent: Patient's case requires discussion with on-call rb Psychiatrist complete. 02:03 PSA/PFS to call Nursing Lumber Piler Operator, to [place] if patient rb involuntarily admitted or transferred for SI or HI complete. 04:20 REGULAR DIET PLASTIC STONER+DIET ordered. EDMS 05:45 Awaiting: The patient is awaiting psychiatric admission or transfer. All labs and pc investigations have been reviewed. The vital signs have been reviewed. The patient remains medically cleared for disposition. 07:[address] [facility]: ordered. EDMS 07:21 [facility] Legal paperwork was scanned into [employer] and attached to record. rb 15:07 T-Sheet-- Draft Copy was scanned into [employer] and attached to record. gb Signatures: Dispatcher [employer] EDMS Sánchez Murcia MD MD pc Delaney-Rowland, Sarah, MD MD sd1 Chilango Elizabeth MD MD ml Hanna Judd, RN RN kcs Vaishali De Leon, PSA PSA rb Destiny Waters, Reg Reg gb Mahin Langford, Sergei Byers RN RN ml6 Roseanne Ochoa, Reg Reg [email or web address] The chart was reviewed and I authenticate all verbal orders and agree with the evaluation and treatment provided.Attachments: 08/20 22:02 [facility] Payment Agreement [email or web address] 15:07 T-Sheet-- Draft Copy gb Chart Complete MTDD
--- NOTE | 2016-08-23 09:14 | EDDOCDS ---
Nurse's Notes [facility] Name: Romie De Leon Age: 20 yrs Sex: Male : 1995 Arrival Date: 08/20/2016 Time: 17:07 Bed OBSERVATION Private MD: Other - Complete Info On Cds Diagnosis: Adjustment disorder, unspecified Presentation: 08/20 17:33 Presenting complaint: Patient states: he was refereed from [facility] for MHE. Patient denies kcs SI but admits to NC. Mental Health Triage Level: Level 2: The patient displays active homicidal ideations. Adult Sepsis Screening: The patient does not have new or worsening altered mentation. Patient's respiratory rate is less than 22. Systolic blood pressure is greater than 100. Patient has a qSOFA score of 0- Negative Sepsis Screen. Mental Health Triage Level: Level 2: The patient displays active homicidal ideations. Suicide/Homicide risk assessment- The patient admits to and/or has been reported to be having homicidal ideations. The patient reports that he/she has not been admitted to an inpatient mental health facility in the last 30 days. The patient reports that he/she does not have a recent or current history of substance abuse. The patient reports that he/she has no prior history of suicide attempt and/or organized plan. The patient reports that he/she has not experienced a significant life altering event in the last 30 days. The patient reports that he/she has adequate social support. The patient reports he/she has no significant chronic medical condition(s). 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 Transition of care: patient was not received from another setting of care. 17:33 Acuity: ALEX Level 3 kcs 17:33 Method Of Arrival: Walkin/Carried/Asstd kcs Triage Assessment: 17:36 General: Appears comfortable, well developed, well nourished, well groomed, Behavior is kcs cooperative, pleasant. Pain: Denies pain. HIV screening NA for this visit active duty . Neurological: Level of Consciousness is awake, alert. Respiratory: Airway is patent Respiratory effort is even, unlabored, Respiratory pattern is regular, symmetrical. Derm: Skin is intact, is healthy with good turgor, Skin is dry, Skin is normal. Historical: - Allergies: No known drug Allergies; - Home Meds: 1. Advil 200 mg Oral tab 2 tabs every 6 hours as needed (Last dose: 08/20/2016 05:20) - PMHx: none; - PSHx: none; - Social history: Smoking status: Patient uses tobacco products, current some day smoker. No barriers to communication noted, The patient speaks fluent Kiswahili. - : The pt / caregiver states he / she is not on anticoagulants. Home medication list is obtained from the patient. - Exposure Risk Screening:: None identified. Screenin:01 Screening information is obtained from the patient. Fall risk: No risks identified. ml6 Assistance ADL's: requires no assistance with activities of daily living. Abuse/DV Screen: The patient / caregiver reports he/she is: not in a situation that causes fear, pain or injury. Nutritional screening: No deficits noted. Advance Directives: Currently, there is no health care proxy. home support is adequate. Assessment: 17:39 General: Patient moved to 2nd triage area with his escort. kcs 18:58 General: Appears in no apparent distress, Behavior is flat. General: patient states ml6 that he was speaking with [employer]. Patient states that he had a "break down" [facility], stated that he told them that he was having thoughts of harming the people that were making fun of him. Pain: Denies pain. Neurological: No deficits noted. Cardiovascular: No deficits noted. Capillary refill < 3 seconds is brisk in bilateral fingers toes. Respiratory: No deficits noted. Airway is patent Respiratory effort is even, unlabored, Respiratory pattern is regular, symmetrical. 19:18 General: Appears in no apparent distress, Behavior is flat, Assumed care of pt at this af2 time. Pt being changed by Gabriel, PRIMARY TEACHER at this time. Offers no complaints, escort at bedside with pt. . Neurological: Level of Consciousness is awake, alert, obeys commands, Oriented to person, place, time. Respiratory: Airway is patent Respiratory effort is even, unlabored. Derm: Skin is normal. 19:21 General: ROSELINE staff observing pt at this time.. af2 20:06 General: Appears in no apparent distress, comfortable, Behavior is appropriate for age, jmb cooperative, Patient laying on stretcher with commanding officer at bedside. Patient watching television and voices no complaints at this time.. Neurological: Level of Consciousness is awake, alert, obeys commands, Oriented to person, place, time. Respiratory: Airway is patent Respiratory effort is even, unlabored, Respiratory pattern is regular, symmetrical. 20:48 General: Appears in no apparent distress, Behavior is appropriate for age, cooperative, jmb Patient laying on stretcher, appears comfortable. Patient watching television. NO voiced complaints at this time. . Neurological: Level of Consciousness is awake, alert, obeys commands, Oriented to person, place, time. Respiratory: Airway is patent Respiratory effort is even, unlabored, Respiratory pattern is regular, symmetrical. 21:43 General: Appears in no apparent distress, comfortable, Behavior is appropriate for age, jmb cooperative, Patient ambulating in room with commanding officer at bedside. Patient made phone call. NO complaints voiced at this time.. Pain: Denies pain. Neurological: Level of Consciousness is awake, alert, obeys commands, Oriented to person, place, time, Drive Worker are equal bilaterally Moves all extremities. Speech is normal, Facial symmetry appears normal, Facial symmetry: tongue is midline. Cardiovascular: Capillary refill < 3 seconds Heart tones S1 S2 present Pulses are all present. Rhythm is regular Chest pain is denied. Respiratory: Airway is patent Respiratory effort is even, unlabored, Respiratory pattern is regular, symmetrical, Breath sounds are clear bilaterally. GI: Abdomen is non- distended Bowel sounds present X 4 quads. Abd is soft and non tender X 4 quads. Derm: Skin is pink, warm & dry. Musculoskeletal: Range of motion intact in all extremities. 22:17 General: Appears in no apparent distress, comfortable, Behavior is appropriate for age, jmb cooperative, Patient laying on stretcher with commanding officer at bedside. NO voiced complaints at this time. . Neurological: Level of Consciousness is awake, alert, obeys commands, Oriented to person, place, time. Respiratory: Airway is patent Respiratory effort is even, unlabored, Respiratory pattern is regular, symmetrical. 22:48 General: Appears in no apparent distress, comfortable, Behavior is appropriate for age, jmb cooperative, Patient laying on stretcher watching television. Patient denies discomfort at this time. . Neurological: Level of Consciousness is awake, alert, obeys commands, Oriented to person, place, time. Respiratory: Airway is patent Respiratory effort is even, unlabored, Respiratory pattern is regular, symmetrical. 23:30 General: Appears in no apparent distress, comfortable, Behavior is appropriate for age, jmb cooperative. Neurological: Level of Consciousness is awake, alert, obeys commands, Oriented to person, place, time. Respiratory: Airway is patent Respiratory effort is even, unlabored, Respiratory pattern is regular, symmetrical. 08/21 00:30 General: Appears in no apparent distress, comfortable, Behavior is appropriate for age, jmb cooperative, Patient appears comfortable. Voices no complaints at this time. . Neurological: Level of Consciousness is awake, alert, obeys commands, Oriented to person, place, time. Respiratory: Airway is patent Respiratory effort is even, unlabored, Respiratory pattern is regular, symmetrical. 01:40 General: Appears in no apparent distress, comfortable, Behavior is appropriate for age, jmb cooperative, Patient appears asleep, easy to arouse. NO voiced complaints at this time. . Neurological: Level of Consciousness is awake, alert, obeys commands, Oriented to person, place, time. Respiratory: Airway is patent Respiratory effort is even, unlabored, Respiratory pattern is regular, symmetrical. 02:46 Adult Sepsis Screening: The patient does not have new or worsening altered mentation. cf2 Patient's respiratory rate is less than 22. Systolic blood pressure is greater than 100. Patient has a qSOFA score of 0- Negative Sepsis Screen. General: Patient calm and cooperative. Offers no complaints at present time. Will continue to monitor . 03:08 Reassessment: Patient appears in no apparent distress at this time. resting quietly on rw1 stretcher, safety maintained will monitor.. 04:15 Reassessment: Patient calm and cooperative will continue to monitor . cf2 05:04 General: Appears in no apparent distress, comfortable, Behavior is quiet, resting on rw1 stretcher with eyes closed, safety maintained. Respiratory: Airway is patent Respiratory effort is even, unlabored. Derm: Skin is pink, warm & dry. normal. 06:04 Reassessment: Patient appears in no apparent distress at this time. Patient denies pain rw1 at this time. resting quietly on stretcher, safety maintained will monitor.. 06:29 Reassessment: Patient appears in no apparent distress at this time. Patient denies pain cf2 at this time. General: Patient calm and cooperative. Will continue to monitor . 08:10 General: Appears in no apparent distress, comfortable, Behavior is cooperative, mk4 transferred to [facility]. Mental Health Eval: 02:05 Mental health consult is initiated at 01:00. 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 [facility] Behavioral Health: The patient is not an established patient of [facility] Behavioral Health. Referral Information: Evaluation referral is generated by ELIZABETH on [place] [place]. The patient was referred for evaluation because Pt presented to ED via [facility] after making +SI and +HI statements. Pt stated "Super stressed out, had a mental breakdown". "everything just piled up". Pt reported depressed since return from deployment ([place]-6mo) last October," thought depression would go away". "Depression got worse over , I am a stress eater, turned to food, gained weight". "I was put in over weight program, and get called names". "Super stressed". "Have been inside". "Would be easier if I wasn't here anymore". Pt reported made a +HI comment to someone regarding people who call him names. . Subjective: The patients chief complaint is +SI, hopeless, Made +HI comment.. Delusions are denied. Patient's mood is dysphoric, hopeless, Hallucinations are denied. Mental Health history: depression, Mental Health Admissions: None. Current Outpatient Mental Health Services: None. Current living environment is The patient currently lives with his / her significant other, in an apartment.. Patient presents to Emergency Department with the following symptoms within the past 2 weeks: anxiety, increased appetite, depressed mood, feelings of helplessness/hopelessness, labile mood, suicidal ideation with no plan, weight gain. Substance abuse: Pt denies. Mental status exam: Patients appearance is appropriate, Patient's behavior is cooperative, Speech is slow. Affect is flat. Mood is anxious. dysphoric. Hallucinations are denied. Memory is good. Energy level is lethargic. Content of thought is depressive. , Thought process is characterized by flight of ideas. Cognitive level is oriented to person, place, time and situation Patient's insight is fair. Judgement is fair. Rapport with interviewer is good. Suicidal Ideation is present with no specific plan. Homicidal ideation is denied. Disposition: Medically cleared for disposition by Chilango Elizabeth MD Psychiatric Consult is performed by phone with Dr Shweta Diaz. [facility] Admission Criteria: The patient is experiencing suicidal ideation. The patient displays homicidal ideation. The patient displays symptoms of severe psychiatric disorder resulting in disordered behavior and significant interference with his / her ability to maintain self care. Severe Anxiety. The patient requires continuous observation and/or control to protect self, others or property. [place] Safe Act: [place] Safe Act is applicable to this patient. The patient poses a risk to self or other and the Nursing Animal Trapper has been notified. He/She will enter the patient's data. 07:02 Legal Status: Patient's legal status will be Emergency admission: 39. Insurance rb Pre-Certification: Not Required. 07:31 DSM-V Differential Diagnosis: Adjustment Disorder (F43.2) with depressed mood (F43.21). rb Awaiting: transfer to [facility]. Vital Signs: 08/20 17:09 BP 156 / 83; Pulse 84; Resp 18 S; Temp 98.3(O); Pulse Ox 97% ; Weight 99.79 kg (R); gr2 Height 5 ft. 9 in. (175.26 cm) (R); Pain 0/10; 22:20 BP 144 / 84; Pulse 60; Resp 18 S; Temp 97.8(O); Pulse Ox 100% on R/A; Pain 0/10; jp4 / 06:04 BP 154 / 72 LA Sitting; Pulse 82; Resp 16; Temp 97.6(T); Pulse Ox 97% on R/A; Pain 0/10;rw1 08:05 BP 143 / 69; Pulse 60; Resp 16; Temp 96.9(O); Pulse Ox 97% on R/A; Pain 0/10; kr3 08/20 17:09 Body Mass Index 32.49 (99.79 kg, 175.26 cm) gr2 Vitals: 08/20 17:09 Log In Time: August 20, 2016 at 17:09. RN notified that patient meets Red Flag gr2 criteria. ED Course: 17:08 Patient visited by Adele Resendiz. gr2 17:08 Patient moved to Waiting gr2 17:09 Other - Complete Info On Cds is Private Physician. gr2 17:10 Patient visited by Adele Resendiz. gr2 17:10 Patient moved to Pre RCE gr2 17:35 Triage Initiated kcs 17:37 Patient moved to Psy Chair1 kcs 18:46 Patient moved to I8 / 16 [facility] 18:50 Patient visited by Leanne Nguyen PCA. sudha 19:00 Chilango Elizabeth MD is Attending Physician. ml 19:00 Patient visited by Chilango Elizabeth MD. ml 19:01 The patient / caregiver is instructed regarding the plan of care and ED course. ml6 19:01 No IV's were initiated during this patient's visit. No procedures done that require ml6 assistance. 19:08 Acetaminophen Level Sent. sudha 19:08 Basic Metabolic Profile Sent. sudha 19:08 Complete Blood Count Sent. sudha 19:08 Drug Eval Toxicology ED Only Sent. sudha 19:08 Ethyl Alcohol (ethanol) Sent. sudha 19:08 Liver Profile Sent. sudha 19:08 Salicylate Level Sent. sudha 19:08 Thyroid Stimulating Hormone Sent. sudha 19:20 Patient visited by Lexis Weldon RN. af2 19:21 Patient visited by Lexis Weldon RN. af2 20:07 Patient visited by Junior Henderson RN. jmb 20:48 Patient visited by Martha Marshall PCA. rs6 20:49 Patient visited by Junior Henderson RN. jmb 21:44 Patient visited by Junior Henderson RN. jmb 22:02 [facility] Payment Agreement was scanned into SafetyCertified and attached to record. ks16 22:18 Patient visited by Junior Henderson RN. jmb 22:20 Patient visited by Gabriel Moyer. jp4 22:49 Patient visited by Junior Henderson RN. jmb 23:07 Nayeli Jeffers,CLARIBEL is Primary Nurse. cf2 23:07 Patient visited by Nayeli Jeffers,CLARIBEL. cf2 23:17 Patient moved to OBSERVATION 08/21 00:49 role handed off by Robbin Giles PSA kb5 01:23 Patient visited by Nayeli Jeffers,CLARIBEL. cf2 01:42 Patient visited by Junior Henderson RN. jmb 02:46 Patient visited by Nayeli Jeffers,CLARIBEL. cf2 03:00 Patient visited by Travis Monique PCA. kb5 03:00 Psych Safety Check: Location: Psych Room. Visual Assessment: Cooperative. kb5 03:15 Patient visited by Travis Monique PRIMARY TEACHER. kb5 03:15 Psych Safety Check: Location: Psych Room. Visual Assessment: Cooperative. kb5 03:30 Psych Safety Check: Location: Psych Room. Visual Assessment: Cooperative. kb5 03:31 Patient visited by Emeterio Alarcon LPN. rw1 03:45 Patient visited by Emeterio Alarcon LPN. rw1 03:45 Psych Safety Check: Location: Psych Room. Visual Assessment: Cooperative. kb5 04:00 Psych Safety Check: Location: Psych Room. Visual Assessment: Cooperative. kb5 04:04 Patient visited by Emeterio Alarcon LPN. rw1 04:15 Psych Safety Check: Location: Psych Room. Visual Assessment: Cooperative. kb5 04:18 Patient visited by Travis Monique PRIMARY TEACHER. kb5 04:30 Patient visited by Terra Moniqueopher PRIMARY TEACHER. kb5 04:30 Psych Safety Check: Location: Psych Room. Visual Assessment: Cooperative. kb5 04:45 Patient visited by Terra Moniqueopher PRIMARY TEACHER. kb5 04:45 Psych Safety Check: Location: Psych Room. Visual Assessment: Cooperative. kb5 05:00 Psych Safety Check: Location: Psych Room. Visual Assessment: Cooperative. kb5 05:15 Psych Safety Check: Location: Psych Room. Visual Assessment: Cooperative. kb5 05:22 Patient visited by Terra Moniqueopher PRIMARY TEACHER. kb5 05:30 Psych Safety Check: Location: Psych Room. Visual Assessment: Cooperative. kb5 05:40 Patient visited by Terra Moniqueopher, PRIMARY TEACHER. kb5 05:45 Patient visited by Terra Moniqueopher PRIMARY TEACHER. kb5 05:45 Attending Physician role handed off by Chilango Elizabeth MD pc 05:45 Sánchez Murcia MD is Attending Physician. pc 05:45 Psych Safety Check: Location: Psych Room. Visual Assessment: Cooperative. kb5 06:00 Patient visited by Abner Moniqueer PRIMARY TEACHER. kb5 06:00 Psych Safety Check: Location: Psych Room. Visual Assessment: Cooperative. kb5 06:15 Patient visited by Abner Moniqueer PRIMARY TEACHER. kb5 06:15 Psych Safety Check: Location: Psych Room. Visual Assessment: Cooperative. kb5 06:29 Patient visited by Nayeli Jeffers,CLARIBEL. cf2 06:30 Patient visited by Travis Monique PCA. kb5 06:30 Psych Safety Check: Location: Psych Room. Visual Assessment: Cooperative. kb5 06:45 Psych Safety Check: Location: Psych Room. Visual Assessment: Cooperative. kb5 06:57 Patient visited by Travis Monique PCA. kb5 07:00 Svetlana Martin,CLARIBEL is Primary Nurse. ck1 07:00 Psych Safety Check: Location: Psych Room. Visual Assessment: Cooperative. pjf 07:05 Attending Physician role handed off by Sánchez Murcia MD sd1 07:05 Nika Jerez MD is Attending Physician. sd1 07:15 Psych Safety Check: Location: Psych Room. Visual Assessment: Cooperative. pjf 07:21 [facility] Legal paperwork was scanned into SafetyCertified and attached to record. rb 07:30 Psych Safety Check: Location: Psych Room. Visual Assessment: Cooperative. pjf 07:45 Psych Safety Check: Location: Psych Room. Visual Assessment: Cooperative. pjf 07:51 Shweta Diaz is Hospitalizing Provider. sd1 07:53 Patient visited by Mahin Langford Security Aide. pjf 08:09 Patient visited by Mahin Langford Security Aide. pjf 15:07 T-Sheet-- Draft Copy was scanned into SafetyCertified and attached to record. gb Attachments: 08/21 07:21 [facility] Legal paperwork rb Order Results: Lab Order: Acetaminophen Level; SPEC'M 08/20/16 19:06 Test: ACETAMINOPHEN LEVEL; Value: < 2.0; Range: 10.0-30.0; Abnormal: Below low normal; Units: UG/ML; Status: F Lab Order: Basic Metabolic Profile; SPEC'M 08/20/16 19:06 Test: GLUCOSE, FASTING; Value: 97; Range: 70-105; Units: MG/DL; Status: F Test: BLOOD UREA NITROGEN; Value: 16; Range: 7-18; Units: MG/DL; Status: F Test: CREATININE FOR GFR; Value: 0.94; Range: 0.70-1.30; Units: MG/DL; Status: F Test: SODIUM LEVEL; Value: 143; Range: 136-145; Units: MEQ/L; Status: F Test: POTASSIUM SERUM; Value: 4.2; Range: 3.5-5.1; Units: MEQ/L; Status: F Test: CHLORIDE LEVEL; Value: 108; Range: 98-107; Abnormal: Above high normal; Units: MEQ/L; Status: F Test: CARBON DIOXIDE LEVEL; Value: 28; Range: 21-32; Units: MEQ/L; Status: F Test: ANION GAP; Value: 7; Range: 8-16; Abnormal: Below low normal; Units: MEQ/L; Status: F Test: CALCIUM LEVEL; Value: 9.0; Range: 8.5-10.1; Units: MG/DL; Status: F Lab Order: Complete Blood Count; SPEC'M 08/20/16 19:06 Test: WHITE BLOOD COUNT; Value: 7.9; Range: 4.0-10.0; Units: K/mm3; Status: F Test: RED BLOOD COUNT; Value: 5.29; Range: 4.30-6.10; Units: M/mm3; Status: F Test: HEMOGLOBIN; Value: 16.4; Range: 14.0-18.0; Units: g/dl; Status: F Test: HEMATOCRIT; Value: 45.1; Range: 42.0-52.0; Units: %; Status: F Test: MEAN CORPUSCULAR VOLUME; Value: 85.2; Range: 80.0-96.0; Units: fl; Status: F Test: MEAN CORPUSCULAR HEMOGLOBIN; Value: 31.0; Range: 27.0-33.0; Units: pg; Status: F Test: MEAN CORPUSCULAR HGB CONC; Value: 36.4; Range: 32.0-36.5; Units: g/dl; Status: F Test: RED CELL DISTRIBUTION WIDTH; Value: 12.6; Range: 11.5-14.5; Units: %; Status: F Test: PLATELET COUNT, AUTOMATED; Value: 208; Range: 150-450; Units: k/mm3; Status: F Lab Order: Drug Eval Toxicology ED Only; SPEC'M 08/20/16 19:06 Test: AMPHETAMINES LEVEL URINE; Value: NEGATIVE; Range: NEGATIVE; Status: F Test: BARBITURATES URINE; Value: NEGATIVE; Range: NEGATIVE; Status: F Test: BENZODIAZEPINES URINE; Value: NEGATIVE; Range: NEGATIVE; Status: F Test: CANNABINOIDS URINE; Value: NEGATIVE; Range: NEGATIVE; Status: F Test: COCAINE METABOLITE URINE; Value: NEGATIVE; Range: NEGATIVE; Status: F Test: METHADONE URINE; Value: NEGATIVE; Range: NEGATIVE; Status: F Test: OPIATES URINE; Value: NEGATIVE; Range: NEGATIVE; Status: F Test: TRICYCLIC ANTIDEPRESS URINE; Value: NEGATIVE; Range: NEGATIVE; Status: F Test Note: ; ALL PRESUMPTIVE POSITIVE FINDINGS ARE UNCONFIRMED NORMAL VALUES THRESHOLD IN NG/ML AMPHETAMINES 1000 METHAMPHETAMINES 1000 BARBITURATES 300 BENZODIAZEPINES 300 CANNABINOIDS (THC) 50 COCAINE METABOLITE 300 METHADONE 300 OPIATES 300 PHENCYCLIDINE 25 TRICYCLIC ANTIDEPRESSANTS 1000 RESULTS ARE FOR MEDICAL PURPOSES ONLY. ALL URINE SPECIMENS WILL BE SAVED FOR 3 DAYS. IF CONFIRMATION OF A PRESUMPTIVE POSTIVE SCREEN RESULT IS DESIRED, CALL CHEMISTRY ([phone]) AND REQUEST URINE TO BE SENT TO REFERENCE LAB. FOR A LIST OF CLOSELY RELATED COMPOUNDS PLEASE CALL THE LAB. Lab Order: Ethyl Alcohol (ethanol); SPEC'M 08/20/16 19:06 Test: ETHYL ALCOHOL (ETHANOL); Value: < 0.003; Range: 0.000-0.010; Units: %; Status: F Lab Order: Liver Profile; SPEC'M 08/20/16 19:06 Test: AST/SGOT; Value: 18; Range: 15-37; Units: U/L; Status: F Test: ALT/SGPT; Value: 43; Range: 12-78; Units: U/L; Status: F Test: ALKALINE PHOSPHATASE; Value: 87; Range: 45-117; Units: U/L; Status: F Test: BILIRUBIN,TOTAL; Value: 0.4; Range: 0.2-1.0; Units: MG/DL; Status: F Test: BILIRUBIN,DIRECT; Value: < 0.1; Range: 0.0-0.2; Units: MG/DL; Status: F Test: TOTAL PROTEIN; Value: 7.5; Range: 6.4-8.2; Units: GM/DL; Status: F Test: ALBUMIN; Value: 4.5; Range: 3.2-5.2; Units: GM/DL; Status: F Test: ALBUMIN/GLOBULIN RATIO; Value: 1.50; Range: 1.00-1.93; Status: F Lab Order: Salicylate Level; SPEC'M 08/20/16 19:06 Test: SALICYLATE LEVEL; Value: < 1.7; Range: 5.0-30.0; Abnormal: Below low normal; Units: MG/DL; Status: F Lab Order: Thyroid Stimulating Hormone; SPEC'M 08/20/16 19:06 Test: THYROID STIMULATING HORMONE; Value: 1.310; Range: 0.463-3.98; Units: uIU/ML; Status: F Outcome: 07:51 Decision to Hospitalize by Provider. sd1 08:09 Discharge Assessment: Patient awake, alert and oriented x 3. No cognitive and/or mk4 functional deficits noted. Patient verbalized understanding of disposition instructions. Patient awake and alert. Discharge Assessment: patient administered narcotics - no. Admitted to Psych accompanied by tech, via wheelchair. The following High Risk Discharge criteria are identified: None. Condition: good Condition: stable. No special radiology studies were completed. Property left with pt per emilee SAFNORD. 08:13 Patient left the ED. pjf Signatures: Sánchez Murcia MD MD pc Delaney-Rowland, Sarah, MD MD sd1 Chilango Elizabeth MD MD ml Sleeman, Kacey, RN Kayleigh Sinclair RN CLARIBEL kphaydee De Leon, Vaishali, PSA PSA rb Barnhardt, Dsetiny, Reg Reg gb Ferendzo, Mahin, Security Aide [facility] Svetlana Martin,RN RN ck1 Monique Neff,RN RN kr3 Emeterio Alarcon,CAR OILER CAR OILER rw1 Travis Monique, PRIMARY TEACHER PRIMARY TEACHER kb5 Sergei Hurley, RN RN ml6 Leanne Nguyen, PRIMARY TEACHER PRIMARY TEACHER sudha Adele Resendiz gr2 Junior Henderson,RN RN Lanie Owen RN RN mk4 Comfort, Gabriel jp4 Martha Marshall, PRIMARY TEACHER PRIMARY TEACHER rs6 Lexis Weldon,RN RN af2 Roseanne Ochoa, Reg Reg ks16 Naylei Jeffers,RN RN cf2 Chart Complete MTDD
[2016-08-23 18:27] VITALS: BP 154/76
[2016-08-23] MEDS: traZODone 50 MG TAB PO PRN (22:09)
--- NOTE | 2016-08-24 05:10 | IPN ---
DATE: 08/23/2016 VITAL SIGNS: Temperature 97.2, pulse 82, respirations 18, blood pressure 155/59. CURRENT MEDICATIONS: - Effexor XR 75 mg every morning - trazodone 50 mg at bedtime PSYCH HISTORY: Patient is nervous about his [id number] meeting later today. Apparently, the unit is going down to [place] on Friday. He is worried about this; otherwise, he reports his anxiety as being somewhat improved. He is sleeping better with the sleeping medication. He is more social on the unit. Typically, he has trouble socializing. He does have a dry mouth, but this is tolerable. Patient informed that today is my last day here at the hospital and he will be seeing another provider. No current panic symptoms. Patient does have history of nightmares and/or flashbacks. DIAGNOSES: 1. Major depression, single episode. 2. Panic anxiety disorder, likely post-traumatic stress disorder (PTSD). Rule out social phobia. PLAN: Continue current psychotropics. Patient to see new provider.
[2016-08-24 06:56] VITALS: BP 129/59
[2016-08-24] MEDS: VENLAFAXINE **XR** 75MG CAPSULE PO SCH (08:17)
[2016-08-24 18:00] VITALS: BP 137/66
[2016-08-24] MEDS: traZODone 50 MG TAB PO PRN (22:33)
--- NOTE | 2016-08-25 02:30 | IPN ---
DATE OF SERVICE: 08/24/2016 The patient is seen and his treatment reviewed. He is diagnosed with major depressive disorder and was admitted due to expressing suicidal and homicidal ideations with worsening depression. He currently is being treated with Effexor XR 75 mg daily and trazodone 50 mg at bedtime. He presents with no notable complaints. There is no major change in mental status the past 24 hours. He has been accepting his medication and participating in therapeutic programs. He reports occasional depressive symptoms and does experience some nightmares and flashbacks. No reported medication untoward effects. OBSERVATION: Vital signs: Blood pressure 129/59, pulse 67, respirations 18, temperature 96.6. He is observed to be cooperative, adequately groomed. No evidence of psychosis. Mood is slightly dysphoric. Affect is mood congruent. He denies suicidal and homicidal thoughts, plan or intent. ASSESSMENT: He continues to comply and respond relatively well to treatment, although continues to require inpatient stabilization as he still does have some depressive symptomatology. PLAN: Current medications will be continued with ongoing reviews. Ongoing assessment and supportive therapy. [facility]
[2016-08-25 06:36] VITALS: BP 145/65
[2016-08-25] MEDS: VENLAFAXINE **XR** 75MG CAPSULE PO SCH (08:42)
[2016-08-25 18:46] VITALS: BP 144/76
[2016-08-25] MEDS: traZODone 50 MG TAB PO PRN (22:46)
--- NOTE | 2016-08-25 23:48 | IPN ---
DATE: 08/25/2016 SUBJECTIVE: This is the fifth day of inpatient admission for this patient who is diagnosed with major depressive disorder and currently on Effexor XR 75 mg orally daily and trazodone 50 mg orally at bedtime. He is seen and his treatment reviewed. He states that I am doing better than what it was. My medications are working good. I have more energy, just a little bit stressed about going home. He did indicate that he has been taking his medications and does not have any side effects. OBJECTIVE: His vital signs are stable. He is adequately groomed and dressed. He is observed interacting with his peers. No medication related adverse events. His mood is less depressed. Affect is appropriate. No overt psychotic features, and he denies suicidal or homicidal thoughts, plan, or intent. ASSESSMENT: Patient is responding to treatment. Currently; however, continues to have some anxiety and concerns about returning back to his formation. PLAN: Current treatment will be continued, and efforts directed at further stabilizing the patient in order to avoid relapse when discharged, given that he still has genuine anxiety about returning to his formation. Once deemed stable, he will be discharged. KEVIN
[2016-08-26 06:30] VITALS: BP 146/67
[2016-08-26] MEDS: VENLAFAXINE **XR** 75MG CAPSULE PO SCH (08:50)
[2016-08-26 18:34] VITALS: BP 139/60
--- NOTE | 2016-08-26 19:41 | IPN ---
DATE: 08/26/2016 SUBJECTIVE: Today is the sixth day of inpatient admission for this patient who currently is being treated with Effexor XR 75 mg orally daily and trazodone 50 mg orally at bedtime. He presents with no major complaints. Says he has been taking the medication and has been doing better; experiencing less depression and anxiety. However, he says he still feels a little anxious and slightly depressed. He denies suicidal or homicidal ideation. OBJECTIVE: Blood pressure 146/67, pulse 59, respirations 16, temperature 96.4. Mood is slightly less depressed. Affect is less constricted. No overt psychotic features. He denies suicidal or homicidal ideation. ASSESSMENT: He continues to respond positively to medication however, his mood remains moderately depressed and may require further stabilization at this time. PLAN: Continue current medication with ongoing supportive therapy. KEVIN
[2016-08-26] MEDS: traZODone 50 MG TAB PO PRN (21:54)
[2016-08-27 06:05] VITALS: BP 145/69
[2016-08-27] MEDS: VENLAFAXINE **XR** 75MG CAPSULE PO SCH (08:43)
--- NOTE | 2016-08-27 13:50 | EDDOCDS ---
Physician Documentation [facility] Name: Romie De Leon Age: 20 yrs Sex: Male : 1995 Arrival Date: 08/20/2016 Time: 17:07 Bed OBSERVATION Private MD: Other - Complete Info On Cds Disposition: 08/21/16 07:51 Hospitalization ordered by Shweta Diaz for Inpatient Admission. Preliminary diagnosis is Adjustment disorder, unspecified. - Bed requested for Admit. - Status is Inpatient Admission. pjf - Condition is Stable. - Problem is new. - Symptoms are unchanged. Historical: - Allergies: No known drug Allergies; - Home Meds: 1. Advil 200 mg Oral tab 2 tabs every 6 hours as needed (Last dose: 08/20/2016 05:20) - PMHx: none; - PSHx: none; - Social history: Smoking status: Patient uses tobacco products, current some day smoker. No barriers to communication noted, The patient speaks fluent Greek. - : The pt / caregiver states he / she is not on anticoagulants. Home medication list is obtained from the patient. - Exposure Risk Screening:: None identified. Vital Signs: 08/20 17:09 BP 156 / 83; Pulse 84; Resp 18 S; Temp 98.3(O); Pulse Ox 97% ; Weight 99.79 kg / 220 gr2 lbs (R); Height 5 ft. 9 in. (175.26 cm) (R); Pain 0/10; 22:20 BP 144 / 84; Pulse 60; Resp 18 S; Temp 97.8(O); Pulse Ox 100% on R/A; Pain 0/10; jp4 08/21 06:04 BP 154 / 72 LA Sitting; Pulse 82; Resp 16; Temp 97.6(T); Pulse Ox 97% on R/A; Pain 0/10;rw1 08:05 BP 143 / 69; Pulse 60; Resp 16; Temp 96.9(O); Pulse Ox 97% on R/A; Pain 0/10; kr3 08/20 17:09 Body Mass Index 32.49 (99.79 kg, 175.26 cm) gr2 MDM: 08/20 18:29 REGULAR DIET PLASTIC STONER+DIET ordered. EDMS 18:55 Consult PFS/PSA/Cloth Winder Machine Operator ordered. ml6 18:55 Consult PFS/PSA/Cloth Winder Machine Operator: Patient's case requires discussion with on-call ml6 Psychiatrist ordered. 18:55 PSA/PFS to call Nursing Sales Performance Manager, to enter patient data on [place] Safe [place] if patient ml6 involuntarily admitted or transferred for SI or HI ordered. 18:55 Confirm accurate psychiatric medication list and times of last dosage ordered. ml6 18:55 Detain Pt Until Medically/PFS Cleared ordered. ml6 18:56 Acetaminophen Level Ordered. EDMS 18:56 Basic Metabolic Profile Ordered. EDMS 18:56 Complete Blood Count Ordered. EDMS 18:56 Drug Eval Toxicology ED Only Ordered. EDMS 18:56 Ethyl Alcohol (ethanol) Ordered. EDMS 18:57 Liver Profile Ordered. EDMS 18:57 Salicylate Level Ordered. EDMS 18:57 Thyroid Stimulating Hormone Ordered. EDMS 20:35 Acetaminophen Level Reviewed. ml 20:35 Basic Metabolic Profile Reviewed. ml 20:35 Salicylate Level Reviewed. ml 20:35 Complete Blood Count Reviewed. ml 20:35 Drug Eval Toxicology ED Only Reviewed. ml 20:35 Ethyl Alcohol (ethanol) Reviewed. ml 20:35 Liver Profile Reviewed. ml 20:35 Thyroid Stimulating Hormone Reviewed. ml 21:04 Financial registration complete. [email or web address] 22:02 [facility] Payment Agreement was scanned into [employer] and attached to record. [email or web address] 04 02:03 Consult PFS/PSA/Cloth Winder Machine Operator complete. rb 02:03 Consult PFS/PSA/Cloth Winder Machine Operator: Patient's case requires discussion with on-call rb Psychiatrist complete. 02:03 PSA/PFS to call Nursing Sales Performance Manager, to enter patient data [place] Safe [place] if patient rb involuntarily admitted or transferred for SI or HI complete. 04:20 REGULAR DIET PLASTIC STONER+DIET ordered. EDMS 05:45 Awaiting: The patient is awaiting psychiatric admission or transfer. All labs and pc investigations have been reviewed. The vital signs have been reviewed. The patient remains medically cleared for disposition. 07:20 Admit to [facility]: ordered. EDMS 07:21 [facility] Legal paperwork was scanned into [employer] and attached to record. rb 15:07 T-Sheet-- Draft Copy was scanned into [employer] and attached to record. gb Signatures: Dispatcher [employer] EDMS Sánchez Murcia MD MD pc Delaney-Rowland, Sarah, MD MD sd1 Chilango Elizabeth MD MD ml Hanna Judd, RN RN kcs Vaishali De Leon, PSA PSA rb Destiyn Waters, Reg Reg gb Mahin Langford, Sergei Byers RN RN ml6 Roseanne Ochoa, Reg Reg [email or web address] The chart was reviewed and I authenticate all verbal orders and agree with the evaluation and treatment provided.Attachments: 08/20 22:02 [facility] Payment Agreement [email or web address] Chart Complete MTDD
--- NOTE | 2016-08-27 13:50 | EDDOCDS ---
Physician Documentation [facility] Name: Romie De Leon Age: 20 yrs Sex: Male : 1995 Arrival Date: 08/20/2016 Time: 17:07 Bed OBSERVATION Private MD: Other - Complete Info On Cds Disposition: 08/21/16 07:51 Hospitalization ordered by Shweta Diaz for Inpatient Admission. Preliminary diagnosis is Adjustment disorder, unspecified. - Bed requested for Admit. - Status is Inpatient Admission. pjf - Condition is Stable. - Problem is new. - Symptoms are unchanged. Historical: - Allergies: No known drug Allergies; - Home Meds: 1. Advil 200 mg Oral tab 2 tabs every 6 hours as needed (Last dose: 08/20/2016 05:20) - PMHx: none; - PSHx: none; - Social history: Smoking status: Patient uses tobacco products, current some day smoker. No barriers to communication noted, The patient speaks fluent Korean. - : The pt / caregiver states he / she is not on anticoagulants. Home medication list is obtained from the patient. - Exposure Risk Screening:: None identified. Vital Signs: 08/20 17:09 BP 156 / 83; Pulse 84; Resp 18 S; Temp 98.3(O); Pulse Ox 97% ; Weight 99.79 kg / 220 gr2 lbs (R); Height 5 ft. 9 in. (175.26 cm) (R); Pain 0/10; 22:20 BP 144 / 84; Pulse 60; Resp 18 S; Temp 97.8(O); Pulse Ox 100% on R/A; Pain 0/10; jp4 08/21 06:04 BP 154 / 72 LA Sitting; Pulse 82; Resp 16; Temp 97.6(T); Pulse Ox 97% on R/A; Pain 0/10;rw1 08:05 BP 143 / 69; Pulse 60; Resp 16; Temp 96.9(O); Pulse Ox 97% on R/A; Pain 0/10; kr3 08/20 17:09 Body Mass Index 32.49 (99.79 kg, 175.26 cm) gr2 MDM: 08/20 18:29 REGULAR DIET PLASTIC STONER+DIET ordered. EDMS 18:55 Consult PFS/PSA/Powered Bridge Specialist ordered. ml6 18:55 Consult PFS/PSA/Powered Bridge Specialist: Patient's case requires discussion with on-call ml6 Psychiatrist ordered. 18:55 PSA/PFS to call Nursing Credit Reporter, to enter [place] data [place] if patient ml6 involuntarily admitted or transferred for SI or HI ordered. 18:55 Confirm accurate psychiatric medication list and times of last dosage ordered. ml6 18:55 Detain Pt Until Medically/PFS Cleared ordered. ml6 18:56 Acetaminophen Level Ordered. EDMS 18:56 Basic Metabolic Profile Ordered. EDMS 18:56 Complete Blood Count Ordered. EDMS 18:56 Drug Eval Toxicology ED Only Ordered. EDMS 18:56 Ethyl Alcohol (ethanol) Ordered. EDMS 18:57 Liver Profile Ordered. EDMS 18:57 Salicylate Level Ordered. EDMS 18:57 Thyroid Stimulating Hormone Ordered. EDMS 20:35 Acetaminophen Level Reviewed. ml 20:35 Basic Metabolic Profile Reviewed. ml 20:35 Salicylate Level Reviewed. ml 20:35 Complete Blood Count Reviewed. ml 20:35 Drug Eval Toxicology ED Only Reviewed. ml 20:35 Ethyl Alcohol (ethanol) Reviewed. ml 20:35 Liver Profile Reviewed. ml 20:35 Thyroid Stimulating Hormone Reviewed. ml 21:04 Financial registration complete. [email or web address] 22:02 [facility] Payment Agreement was scanned into [employer] and attached to record. [email or web address] 04 02:03 Consult PFS/PSA/Powered Bridge Specialist complete. rb 02:03 Consult PFS/PSA/Powered Bridge Specialist: Patient's case requires discussion with on-call rb Psychiatrist complete. 02:03 PSA/PFS to call Nursing Credit Reporter, to enter [place] data [place] if patient rb involuntarily admitted or transferred for SI or HI complete. 04:20 REGULAR DIET PLASTIC STONER+DIET ordered. EDMS 05:45 Awaiting: The patient is awaiting psychiatric admission or transfer. All labs and pc investigations have been reviewed. The vital signs have been reviewed. The patient remains medically cleared for disposition. 07:20 Admit to [facility]: ordered. EDMS 07:21 [facility] Legal paperwork was scanned into [employer] and attached to record. rb 15:07 T-Sheet-- Draft Copy was scanned into [employer] and attached to record. gb Signatures: Dispatcher [employer] EDMS Sánchez Murcia MD MD pc Delaney-Rowland, Sarah, MD MD sd1 Chilango Elizabeth MD MD ml Hanna Judd, RN RN kcs Vaishali De Leon, PSA PSA rb Destiny Waters, Reg Reg gb Mahin Langford, Sergei Byers RN RN ml6 Roseanne Ochoa, Reg Reg [email or web address] The chart was reviewed and I authenticate all verbal orders and agree with the evaluation and treatment provided.Attachments: 08/20 22:02 [facility] Payment Agreement [email or web address] Chart Complete MTDD
--- NOTE | 2016-08-27 13:50 | EDDOCDS ---
Nurse's Notes [facility] Name: Romie De Leon Age: 20 yrs Sex: Male : 1995 Arrival Date: 08/20/2016 Time: 17:07 Bed OBSERVATION Private MD: Other - Complete Info On Cds Diagnosis: Adjustment disorder, unspecified Presentation: 08/20 17:33 Presenting complaint: Patient states: he was refereed from [facility] for MHE. Patient denies kcs SI but admits to SD. Mental Health Triage Level: Level 2: The patient displays active homicidal ideations. Adult Sepsis Screening: The patient does not have new or worsening altered mentation. Patient's respiratory rate is less than 22. Systolic blood pressure is greater than 100. Patient has a qSOFA score of 0- Negative Sepsis Screen. Mental Health Triage Level: Level 2: The patient displays active homicidal ideations. Suicide/Homicide risk assessment- The patient admits to and/or has been reported to be having homicidal ideations. The patient reports that he/she has not been admitted to an inpatient mental health facility in the last 30 days. The patient reports that he/she does not have a recent or current history of substance abuse. The patient reports that he/she has no prior history of suicide attempt and/or organized plan. The patient reports that he/she has not experienced a significant life altering event in the last 30 days. The patient reports that he/she has adequate social support. The patient reports he/she has no significant chronic medical condition(s). 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 Transition of care: patient was not received from another setting of care. 17:33 Acuity: ALEX Level 3 kcs 17:33 Method Of Arrival: Walkin/Carried/Asstd kcs Triage Assessment: 17:36 General: Appears comfortable, well developed, well nourished, well groomed, Behavior is kcs cooperative, pleasant. Pain: Denies pain. HIV screening NA for this visit active duty . Neurological: Level of Consciousness is awake, alert. Respiratory: Airway is patent Respiratory effort is even, unlabored, Respiratory pattern is regular, symmetrical. Derm: Skin is intact, is healthy with good turgor, Skin is dry, Skin is normal. Historical: - Allergies: No known drug Allergies; - Home Meds: 1. Advil 200 mg Oral tab 2 tabs every 6 hours as needed (Last dose: 08/20/2016 05:20) - PMHx: none; - PSHx: none; - Social history: Smoking status: Patient uses tobacco products, current some day smoker. No barriers to communication noted, The patient speaks fluent Belarusian. - : The pt / caregiver states he / she is not on anticoagulants. Home medication list is obtained from the patient. - Exposure Risk Screening:: None identified. Screenin:01 Screening information is obtained from the patient. Fall risk: No risks identified. ml6 Assistance ADL's: requires no assistance with activities of daily living. Abuse/DV Screen: The patient / caregiver reports he/she is: not in a situation that causes fear, pain or injury. Nutritional screening: No deficits noted. Advance Directives: Currently, there is no health care proxy. home support is adequate. Assessment: 17:39 General: Patient moved to 2nd triage area with his escort. kcs 18:58 General: Appears in no apparent distress, Behavior is flat. General: patient states ml6 that he was speaking with [email or web address]. Patient states that he had a "break down" in front of [facility], stated that he told them that he was having thoughts of harming the people that were making fun of him. Pain: Denies pain. Neurological: No deficits noted. Cardiovascular: No deficits noted. Capillary refill < 3 seconds is brisk in bilateral fingers toes. Respiratory: No deficits noted. Airway is patent Respiratory effort is even, unlabored, Respiratory pattern is regular, symmetrical. 19:18 General: Appears in no apparent distress, Behavior is flat, Assumed care of pt at this af2 time. Pt being changed by Gabriel, PRESCRIPTION BENEFIT SPECIALIST at this time. Offers no complaints, escort at bedside with pt. . Neurological: Level of Consciousness is awake, alert, obeys commands, Oriented to person, place, time. Respiratory: Airway is patent Respiratory effort is even, unlabored. Derm: Skin is normal. 19:21 General: [facility]SE[facility] staff observing pt at this time.. af2 20:06 General: Appears in no apparent distress, comfortable, Behavior is appropriate for age, jmb cooperative, Patient laying on stretcher with commanding officer at bedside. Patient watching television and voices no complaints at this time.. Neurological: Level of Consciousness is awake, alert, obeys commands, Oriented to person, place, time. Respiratory: Airway is patent Respiratory effort is even, unlabored, Respiratory pattern is regular, symmetrical. 20:48 General: Appears in no apparent distress, Behavior is appropriate for age, cooperative, jmb Patient laying on stretcher, appears comfortable. Patient watching television. NO voiced complaints at this time. . Neurological: Level of Consciousness is awake, alert, obeys commands, Oriented to person, place, time. Respiratory: Airway is patent Respiratory effort is even, unlabored, Respiratory pattern is regular, symmetrical. 21:43 General: Appears in no apparent distress, comfortable, Behavior is appropriate for age, jmb cooperative, Patient ambulating in room with commanding officer at bedside. Patient made phone call. NO complaints voiced at this time.. Pain: Denies pain. Neurological: Level of Consciousness is awake, alert, obeys commands, Oriented to person, place, time, Television Cameraman are equal bilaterally Moves all extremities. Speech is normal, Facial symmetry appears normal, Facial symmetry: tongue is midline. Cardiovascular: Capillary refill < 3 seconds Heart tones S1 S2 present Pulses are all present. Rhythm is regular Chest pain is denied. Respiratory: Airway is patent Respiratory effort is even, unlabored, Respiratory pattern is regular, symmetrical, Breath sounds are clear bilaterally. GI: Abdomen is non- distended Bowel sounds present X 4 quads. Abd is soft and non tender X 4 quads. Derm: Skin is pink, warm & dry. Musculoskeletal: Range of motion intact in all extremities. 22:17 General: Appears in no apparent distress, comfortable, Behavior is appropriate for age, jmb cooperative, Patient laying on stretcher with commanding officer at bedside. NO voiced complaints at this time. . Neurological: Level of Consciousness is awake, alert, obeys commands, Oriented to person, place, time. Respiratory: Airway is patent Respiratory effort is even, unlabored, Respiratory pattern is regular, symmetrical. 22:48 General: Appears in no apparent distress, comfortable, Behavior is appropriate for age, jmb cooperative, Patient laying on stretcher watching television. Patient denies discomfort at this time. . Neurological: Level of Consciousness is awake, alert, obeys commands, Oriented to person, place, time. Respiratory: Airway is patent Respiratory effort is even, unlabored, Respiratory pattern is regular, symmetrical. 23:30 General: Appears in no apparent distress, comfortable, Behavior is appropriate for age, jmb cooperative. Neurological: Level of Consciousness is awake, alert, obeys commands, Oriented to person, place, time. Respiratory: Airway is patent Respiratory effort is even, unlabored, Respiratory pattern is regular, symmetrical. 08/21 00:30 General: Appears in no apparent distress, comfortable, Behavior is appropriate for age, jmb cooperative, Patient appears comfortable. Voices no complaints at this time. . Neurological: Level of Consciousness is awake, alert, obeys commands, Oriented to person, place, time. Respiratory: Airway is patent Respiratory effort is even, unlabored, Respiratory pattern is regular, symmetrical. 01:40 General: Appears in no apparent distress, comfortable, Behavior is appropriate for age, jmb cooperative, Patient appears asleep, easy to arouse. NO voiced complaints at this time. . Neurological: Level of Consciousness is awake, alert, obeys commands, Oriented to person, place, time. Respiratory: Airway is patent Respiratory effort is even, unlabored, Respiratory pattern is regular, symmetrical. 02:46 Adult Sepsis Screening: The patient does not have new or worsening altered mentation. cf2 Patient's respiratory rate is less than 22. Systolic blood pressure is greater than 100. Patient has a qSOFA score of 0- Negative Sepsis Screen. General: Patient calm and cooperative. Offers no complaints at present time. Will continue to monitor . 03:08 Reassessment: Patient appears in no apparent distress at this time. resting quietly on rw1 stretcher, safety maintained will monitor.. 04:15 Reassessment: Patient calm and cooperative will continue to monitor . cf2 05:04 General: Appears in no apparent distress, comfortable, Behavior is quiet, resting on rw1 stretcher with eyes closed, safety maintained. Respiratory: Airway is patent Respiratory effort is even, unlabored. Derm: Skin is pink, warm & dry. normal. 06:04 Reassessment: Patient appears in no apparent distress at this time. Patient denies pain rw1 at this time. resting quietly on stretcher, safety maintained will monitor.. 06:29 Reassessment: Patient appears in no apparent distress at this time. Patient denies pain cf2 at this time. General: Patient calm and cooperative. Will continue to monitor . 08:10 General: Appears in no apparent distress, comfortable, Behavior is cooperative, mk4 transferred to [facility]. Mental Health Eval: 02:05 Mental health consult is initiated at 01:00. 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 [facility] Behavioral Health: The patient is not an established patient of [facility] Behavioral Health. Referral Information: Evaluation referral is generated by ELIZABETH on [place]. The patient was referred for evaluation because Pt presented to ED via [facility] after making +SI and +HI statements. Pt stated "Super stressed out, had a mental breakdown". "everything just piled up". Pt reported depressed since return from deployment ([place]6mo) last October," thought depression would go away". "Depression got worse over , I am a stress eater, turned to food, gained weight". "I was put in over weight program, and get called names". "Super stressed". "Have been inside". "Would be easier if I wasn't here anymore". Pt reported made a +HI comment to someone regarding people who call him names. . Subjective: The patients chief complaint is +SI, hopeless, Made +HI comment.. Delusions are denied. Patient's mood is dysphoric, hopeless, Hallucinations are denied. Mental Health history: depression, Mental Health Admissions: None. Current Outpatient Mental Health Services: None. Current living environment is The patient currently lives with his / her significant other, in an apartment.. Patient presents to Emergency Department with the following symptoms within the past 2 weeks: anxiety, increased appetite, depressed mood, feelings of helplessness/hopelessness, labile mood, suicidal ideation with no plan, weight gain. Substance abuse: Pt denies. Mental status exam: Patients appearance is appropriate, Patient's behavior is cooperative, Speech is slow. Affect is flat. Mood is anxious. dysphoric. Hallucinations are denied. Memory is good. Energy level is lethargic. Content of thought is depressive. , Thought process is characterized by flight of ideas. Cognitive level is oriented to person, place, time and situation Patient's insight is fair. Judgement is fair. Rapport with interviewer is good. Suicidal Ideation is present with no specific plan. Homicidal ideation is denied. Disposition: Medically cleared for disposition by Chilango Elizabeth MD Psychiatric Consult is performed by phone with Dr Shweta Diaz. [facility] Admission Criteria: The patient is experiencing suicidal ideation. The patient displays homicidal ideation. The patient displays symptoms of severe psychiatric disorder resulting in disordered behavior and significant interference with his / her ability to maintain self care. Severe Anxiety. The patient requires continuous observation and/or control to protect self, others or property. MD Safe Act: [place] Safe Act is applicable to this patient. The patient poses a risk to self or other and the Nursing Formula Maker has been notified. He/She will enter the patient's data. 07:02 Legal Status: Patient's legal status will be Emergency admission: 39. Insurance rb Pre-Certification: Not Required. 07:31 DSM-V Differential Diagnosis: Adjustment Disorder (F43.2) with depressed mood (F43.21). rb Awaiting: transfer to [facility]. Vital Signs: 08/20 17:09 BP 156 / 83; Pulse 84; Resp 18 S; Temp 98.3(O); Pulse Ox 97% ; Weight 99.79 kg (R); gr2 Height 5 ft. 9 in. (175.26 cm) (R); Pain 0/10; 22:20 BP 144 / 84; Pulse 60; Resp 18 S; Temp 97.8(O); Pulse Ox 100% on R/A; Pain 0/10; jp4 / 06:04 BP 154 / 72 LA Sitting; Pulse 82; Resp 16; Temp 97.6(T); Pulse Ox 97% on R/A; Pain 0/10;rw1 08:05 BP 143 / 69; Pulse 60; Resp 16; Temp 96.9(O); Pulse Ox 97% on R/A; Pain 0/10; kr3 08/20 17:09 Body Mass Index 32.49 (99.79 kg, 175.26 cm) gr2 Vitals: 08/20 17:09 Log In Time: August 20, 2016 at 17:09. RN notified that patient meets Red Flag gr2 criteria. ED Course: 17:08 Patient visited by Adele Resendiz. gr2 17:08 Patient moved to Waiting gr2 17:09 Other - Complete Info On Cds is Private Physician. gr2 17:10 Patient visited by Adele Resendiz. gr2 17:10 Patient moved to Pre RCE gr2 17:35 Triage Initiated kcs 17:37 Patient moved to Psy Chair1 kcs 18:46 Patient moved to I8 / [facility] 18:50 Patient visited by Leanne Nguyen PCA. sudha 19:00 Chilango Elizabeth MD is Attending Physician. ml 19:00 Patient visited by Chilango Elizabeth MD. ml 19:01 The patient / caregiver is instructed regarding the plan of care and ED course. ml6 19:01 No IV's were initiated during this patient's visit. No procedures done that require ml6 assistance. 19:08 Acetaminophen Level Sent. sudha 19:08 Basic Metabolic Profile Sent. sudha 19:08 Complete Blood Count Sent. sudha 19:08 Drug Eval Toxicology ED Only Sent. sudha 19:08 Ethyl Alcohol (ethanol) Sent. sudha 19:08 Liver Profile Sent. sudha 19:08 Salicylate Level Sent. sudha 19:08 Thyroid Stimulating Hormone Sent. sudha 19:20 Patient visited by Lexis Weldon RN. af2 19:21 Patient visited by Lexis Weldon RN. af2 20:07 Patient visited by Junior Henderson RN. jmb 20:48 Patient visited by Martha Marshall PCA. rs6 20:49 Patient visited by Junior Henderson RN. jmb 21:44 Patient visited by Junior Henderson RN. jmb 22:02 [facility] Payment Agreement was scanned into [facility] and attached to record. ks16 22:18 Patient visited by Junior Henderson RN. jmb 22:20 Patient visited by Gabriel Moyer. jp4 22:49 Patient visited by Junior Henderson RN. jmb 23:07 Nayeli Jeffers,CLARIBEL is Primary Nurse. cf2 23:07 Patient visited by Nayeli Jeffers,CLARIBEL. cf2 23:17 Patient moved to OBSERVATION 08/21 00:49 role handed off by Robbin Giles PSA kb5 01:23 Patient visited by Nayeli Jeffers,CLARIBEL. cf2 01:42 Patient visited by Junior Henderson RN. jmb 02:46 Patient visited by Nayeli Jeffers,CLARIBEL. cf2 03:00 Patient visited by Travis Monique PCA. kb5 03:00 Psych Safety Check: Location: Psych Room. Visual Assessment: Cooperative. kb5 03:15 Patient visited by Travis Monique PRESCRIPTION BENEFIT SPECIALIST. kb5 03:15 Psych Safety Check: Location: Psych Room. Visual Assessment: Cooperative. kb5 03:30 Psych Safety Check: Location: Psych Room. Visual Assessment: Cooperative. kb5 03:31 Patient visited by Emeterio Alarcon LPN. rw1 03:45 Patient visited by Emeterio Alarcon LPN. rw1 03:45 Psych Safety Check: Location: Psych Room. Visual Assessment: Cooperative. kb5 04:00 Psych Safety Check: Location: Psych Room. Visual Assessment: Cooperative. kb5 04:04 Patient visited by Emeterio Alarcon LPN. rw1 04:15 Psych Safety Check: Location: Psych Room. Visual Assessment: Cooperative. kb5 04:18 Patient visited by Travis Monique PRESCRIPTION BENEFIT SPECIALIST. kb5 04:30 Patient visited by Terra Moniqueopher PRESCRIPTION BENEFIT SPECIALIST. kb5 04:30 Psych Safety Check: Location: Psych Room. Visual Assessment: Cooperative. kb5 04:45 Patient visited by Terra Moniqueopher PRESCRIPTION BENEFIT SPECIALIST. kb5 04:45 Psych Safety Check: Location: Psych Room. Visual Assessment: Cooperative. kb5 05:00 Psych Safety Check: Location: Psych Room. Visual Assessment: Cooperative. kb5 05:15 Psych Safety Check: Location: Psych Room. Visual Assessment: Cooperative. kb5 05:22 Patient visited by Terra Moniqueopher PRESCRIPTION BENEFIT SPECIALIST. kb5 05:30 Psych Safety Check: Location: Psych Room. Visual Assessment: Cooperative. kb5 05:40 Patient visited by Terra Moniqueopher, PRESCRIPTION BENEFIT SPECIALIST. kb5 05:45 Patient visited by Terra Moniqueopher PRESCRIPTION BENEFIT SPECIALIST. kb5 05:45 Attending Physician role handed off by Chilango Elizabeth MD pc 05:45 Sánchez Murcia MD is Attending Physician. pc 05:45 Psych Safety Check: Location: Psych Room. Visual Assessment: Cooperative. kb5 06:00 Patient visited by Abner Moniqueer PRESCRIPTION BENEFIT SPECIALIST. kb5 06:00 Psych Safety Check: Location: Psych Room. Visual Assessment: Cooperative. kb5 06:15 Patient visited by Abner Moniqueer PRESCRIPTION BENEFIT SPECIALIST. kb5 06:15 Psych Safety Check: Location: Psych Room. Visual Assessment: Cooperative. kb5 06:29 Patient visited by Nayeli Jeffers,CLARIBEL. cf2 06:30 Patient visited by Travis Monique PCA. kb5 06:30 Psych Safety Check: Location: Psych Room. Visual Assessment: Cooperative. kb5 06:45 Psych Safety Check: Location: Psych Room. Visual Assessment: Cooperative. kb5 06:57 Patient visited by Travis Monique PCA. kb5 07:00 Svetlana Martin,CLARIBEL is Primary Nurse. ck1 07:00 Psych Safety Check: Location: Psych Room. Visual Assessment: Cooperative. pjf 07:05 Attending Physician role handed off by Sánchez Murcia MD sd1 07:05 Nika Jerez MD is Attending Physician. sd1 07:15 Psych Safety Check: Location: Psych Room. Visual Assessment: Cooperative. pjf 07:21 [facility] Legal paperwork was scanned into [facility] and attached to record. rb 07:30 Psych Safety Check: Location: Psych Room. Visual Assessment: Cooperative. pjf 07:45 Psych Safety Check: Location: Psych Room. Visual Assessment: Cooperative. pjf 07:51 Shweta Diaz is Hospitalizing Provider. sd1 07:53 Patient visited by Mahin Langford Security Aide. pjf 08:09 Patient visited by Mahin Langford Security Aide. pjf 15:07 T-Sheet-- Draft Copy was scanned into [facility] and attached to record. gb Attachments: 08/21 07:21 [facility] Legal paperwork rb Order Results: Lab Order: Acetaminophen Level; SPEC'M 08/20/16 19:06 Test: ACETAMINOPHEN LEVEL; Value: < 2.0; Range: 10.0-30.0; Abnormal: Below low normal; Units: UG/ML; Status: F Lab Order: Basic Metabolic Profile; SPEC'M 08/20/16 19:06 Test: GLUCOSE, FASTING; Value: 97; Range: 70-105; Units: MG/DL; Status: F Test: BLOOD UREA NITROGEN; Value: 16; Range: 7-18; Units: MG/DL; Status: F Test: CREATININE FOR GFR; Value: 0.94; Range: 0.70-1.30; Units: MG/DL; Status: F Test: SODIUM LEVEL; Value: 143; Range: 136-145; Units: MEQ/L; Status: F Test: POTASSIUM SERUM; Value: 4.2; Range: 3.5-5.1; Units: MEQ/L; Status: F Test: CHLORIDE LEVEL; Value: 108; Range: 98-107; Abnormal: Above high normal; Units: MEQ/L; Status: F Test: CARBON DIOXIDE LEVEL; Value: 28; Range: 21-32; Units: MEQ/L; Status: F Test: ANION GAP; Value: 7; Range: 8-16; Abnormal: Below low normal; Units: MEQ/L; Status: F Test: CALCIUM LEVEL; Value: 9.0; Range: 8.5-10.1; Units: MG/DL; Status: F Lab Order: Complete Blood Count; SPEC'M 08/20/16 19:06 Test: WHITE BLOOD COUNT; Value: 7.9; Range: 4.0-10.0; Units: K/mm3; Status: F Test: RED BLOOD COUNT; Value: 5.29; Range: 4.30-6.10; Units: M/mm3; Status: F Test: HEMOGLOBIN; Value: 16.4; Range: 14.0-18.0; Units: g/dl; Status: F Test: HEMATOCRIT; Value: 45.1; Range: 42.0-52.0; Units: %; Status: F Test: MEAN CORPUSCULAR VOLUME; Value: 85.2; Range: 80.0-96.0; Units: fl; Status: F Test: MEAN CORPUSCULAR HEMOGLOBIN; Value: 31.0; Range: 27.0-33.0; Units: pg; Status: F Test: MEAN CORPUSCULAR HGB CONC; Value: 36.4; Range: 32.0-36.5; Units: g/dl; Status: F Test: RED CELL DISTRIBUTION WIDTH; Value: 12.6; Range: 11.5-14.5; Units: %; Status: F Test: PLATELET COUNT, AUTOMATED; Value: 208; Range: 150-450; Units: k/mm3; Status: F Lab Order: Drug Eval Toxicology ED Only; SPEC'M 08/20/16 19:06 Test: AMPHETAMINES LEVEL URINE; Value: NEGATIVE; Range: NEGATIVE; Status: F Test: BARBITURATES URINE; Value: NEGATIVE; Range: NEGATIVE; Status: F Test: BENZODIAZEPINES URINE; Value: NEGATIVE; Range: NEGATIVE; Status: F Test: CANNABINOIDS URINE; Value: NEGATIVE; Range: NEGATIVE; Status: F Test: COCAINE METABOLITE URINE; Value: NEGATIVE; Range: NEGATIVE; Status: F Test: METHADONE URINE; Value: NEGATIVE; Range: NEGATIVE; Status: F Test: OPIATES URINE; Value: NEGATIVE; Range: NEGATIVE; Status: F Test: TRICYCLIC ANTIDEPRESS URINE; Value: NEGATIVE; Range: NEGATIVE; Status: F Test Note: ; ALL PRESUMPTIVE POSITIVE FINDINGS ARE UNCONFIRMED NORMAL VALUES THRESHOLD IN NG/ML AMPHETAMINES 1000 METHAMPHETAMINES 1000 BARBITURATES 300 BENZODIAZEPINES 300 CANNABINOIDS (THC) 50 COCAINE METABOLITE 300 METHADONE 300 OPIATES 300 PHENCYCLIDINE 25 TRICYCLIC ANTIDEPRESSANTS 1000 RESULTS ARE FOR MEDICAL PURPOSES ONLY. ALL URINE SPECIMENS WILL BE SAVED FOR 3 DAYS. IF CONFIRMATION OF A PRESUMPTIVE POSTIVE SCREEN RESULT IS DESIRED, CALL CHEMISTRY ([phone]) AND REQUEST URINE TO BE SENT TO REFERENCE LAB. FOR A LIST OF CLOSELY RELATED COMPOUNDS PLEASE CALL THE LAB. Lab Order: Ethyl Alcohol (ethanol); SPEC'M 08/20/16 19:06 Test: ETHYL ALCOHOL (ETHANOL); Value: < 0.003; Range: 0.000-0.010; Units: %; Status: F Lab Order: Liver Profile; SPEC'M 08/20/16 19:06 Test: AST/SGOT; Value: 18; Range: 15-37; Units: U/L; Status: F Test: ALT/SGPT; Value: 43; Range: 12-78; Units: U/L; Status: F Test: ALKALINE PHOSPHATASE; Value: 87; Range: 45-117; Units: U/L; Status: F Test: BILIRUBIN,TOTAL; Value: 0.4; Range: 0.2-1.0; Units: MG/DL; Status: F Test: BILIRUBIN,DIRECT; Value: < 0.1; Range: 0.0-0.2; Units: MG/DL; Status: F Test: TOTAL PROTEIN; Value: 7.5; Range: 6.4-8.2; Units: GM/DL; Status: F Test: ALBUMIN; Value: 4.5; Range: 3.2-5.2; Units: GM/DL; Status: F Test: ALBUMIN/GLOBULIN RATIO; Value: 1.50; Range: 1.00-1.93; Status: F Lab Order: Salicylate Level; SPEC'M 08/20/16 19:06 Test: SALICYLATE LEVEL; Value: < 1.7; Range: 5.0-30.0; Abnormal: Below low normal; Units: MG/DL; Status: F Lab Order: Thyroid Stimulating Hormone; SPEC'M 08/20/16 19:06 Test: THYROID STIMULATING HORMONE; Value: 1.310; Range: 0.463-3.98; Units: uIU/ML; Status: F Outcome: 07:51 Decision to Hospitalize by Provider. sd1 08:09 Discharge Assessment: Patient awake, alert and oriented x 3. No cognitive and/or mk4 functional deficits noted. Patient verbalized understanding of disposition instructions. Patient awake and alert. Discharge Assessment: patient administered narcotics - no. Admitted to Psych accompanied by tech, via wheelchair. The following High Risk Discharge criteria are identified: None. Condition: good Condition: stable. No special radiology studies were completed. Property left with pt per emilee SANFORD. 08:13 Patient left the ED. pjf Signatures: Sánchez Murcia MD MD pc Delaney-Rowland, Sarah, MD MD sd1 Chilango Elizabeth MD MD ml Sleeman, Kacey, RN Kayleigh Sinclair RN CLARIBEL kphaydee De Leon, Vaishali, PSA PSA rb Barnhardt, Destiny, Reg Reg gb Ferendzo, Mahin, Security Aide [facility] Svetlana Martin,RN RN ck1 Monique Neff,RN RN kr3 Emeterio Alarcon,ADDICTION THERAPIST ADDICTION THERAPIST rw1 Travis Monique, PRESCRIPTION BENEFIT SPECIALIST PRESCRIPTION BENEFIT SPECIALIST kb5 Sergei Hurley, RN RN ml6 Leanne Nguyen, PRESCRIPTION BENEFIT SPECIALIST PRESCRIPTION BENEFIT SPECIALIST sudha Adele Resendiz gr2 Junior Henderson,RN RN Lanie Owen RN RN mk4 Comfort, Gabriel jp4 Martha Marshall, PRESCRIPTION BENEFIT SPECIALIST PRESCRIPTION BENEFIT SPECIALIST rs6 Lexis Weldon,RN RN af2 Roseanne Ochoa, Reg [id number] Nayeli Jeffers,RN RN cf2 Chart Complete MTDD
--- NOTE | 2016-08-27 16:23 | IPN ---
DATE: 08/27/2016 SUBJECTIVE: The patient is seen and treatment reviewed. Today is his 7th day of inpatient admission, and he has been prescribed Effexor XR 75 mg orally daily and trazodone 50 mg orally at bedtime for treatment of depression. He is diagnosed with major depressive disorder and currently reports taking his medication, attending group and individual activities, and experiencing no notable side effects. He reports doing fine and thinks that he is stable enough to be discharged. No new complaints. OBSERVATION: Blood pressure is 128/69, pulse 81, respirations 16, and temperature 96.9. Patient is noted to be improving with the current treatment. His mood is notably improved. Affect appropriate. No medication-related adverse events. No psychotic features evident. He does not appear to be at risk currently for suicide or homicide. ASSESSMENT: He has continued to maintain treatment stability. PLAN: He will continue this current medication, and if he maintains stability in the next 24 hours, he will scheduled for discharge after a chain of command meeting. KEVIN
[2016-08-27 18:00] VITALS: BP 136/70
[2016-08-27] MEDS: traZODone 50 MG TAB PO PRN (22:54)
[2016-08-28 06:42] VITALS: BP 132/63
[2016-08-28] MEDS: VENLAFAXINE **XR** 75MG CAPSULE PO SCH (08:06)
[2016-08-28] MEDS ORDERED: OCEA0.654 (09:24)
[2016-08-28] MEDS ORDERED: VENL75CA PO (10:07)
--- NOTE | 2016-08-28 13:57 | MHDS ---
DATE OF ADMISSION: 08/21/2016 DATE OF DISCHARGE: HISTORY: The patient is a 20-year-old white male who was admitted after he presented to the emergency room following a referral generated by his chain of command with reports of feeling depressed, suicidal and homicidal. He stated that he was super stressed and felt like everything was falling apart. 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 He resorted to eating excessively, gaining much weight, approximately 40 pounds in the process. He reported feelings of hopelessness and helplessness as well as poor sleep, prompting him to go to his behavioral health clinic at [facility]. His reason he said for going to seek help at [facility] was concerns that he felt his behavior could lead him into cracking and ending up harming himself or others. PAST PSYCHIATRIC HISTORY: The patient has never been seen by a psychiatrist; however, he did see a counselor at age 7 when his parents . No pertinent medical history or substance abuse. Please refer to admission history and physical for social and family related histories. HOSPITAL COURSE: On admission, his mental status revealed notable depressive symptoms, depressed mood. He denied suicidal or homicidal thoughts at the time. However, he did endorse to having had such fleeting thoughts of harming himself and others in the recent past. He denied auditory hallucinations. No delusions were noted. Admitting diagnosis was major depression, single episode, to rule out panic anxiety disorder and rule out post traumatic stress disorder. Treatment was started with Effexor XR at a dose of 37.5 mg every morning. He also was provided with therapeutic interventions to complement treatment with medications. In the course of his stay, he continued to report depressive symptoms and poor sleep. As the result, the Effexor XR was increased to 75 mg every morning. He began to attend groups, individual and activity therapies and was noted to be compliant with all aspects of his treatment. He posed no management difficulties on the unit. Overall, he began to show improvement, responding relatively well to the medications and therapeutic interventions. He improved significantly and maintained stability with no further thoughts of suicide or homicide. MENTAL STATUS ON DISCHARGE: Blood pressure 122/63. Pulse 60. Respirations 18. Temperature 97.4. He was noted to be alert, calm, cooperative, adequately groomed and appropriately dressed. No abnormal involuntary movements noted. His speech was noted to be fluent and prosodic. Thought process coherent and goal directed. No delusions or ideas of reference evident. He denied hallucination and was not observed responding to internal stimuli. His mood was noted to be have improved significantly, not depressed or elated. He denied suicidal thoughts, plans or intents, as well as, homicidal ideation. Insight was noted to be fair and judgment not impaired. DISCHARGE DIAGNOSIS: Major depressive disorder, single episode. DISCHARGE MEDICATIONS: - Effexor XR 75 mg orally daily Patient discharged as he was noted to be stable. A chain of command meeting was held and patient was instructed on the need to continue his medications on discharge and followup with [facility]. He demonstrated understanding and agreed with the plan.
== END 2016-08-28 10:14 | disposition home or self-care (01) | DRG 881 ==
LOC: M ED 17:07 → M PSY 08-21 08:20
PROVIDERS: ADMIT Psychiatry & Neurology Psychiatry; ATTEND Psychiatry & Neurology Psychiatry
DX: F32.9 Major depressive disorder, single episode, unspecified (principal)